=== PATIENT | male | born 1950 | race Caucasian/White ===

== ENCOUNTER → 2023-12-13 | Emergency (ER) | payer OTHER ==
[~2023-12-13] MED LIST: CLINDAMYCIN 600MG/D5W 50 ML IV ONE; TDAP (DIPHTH,PERTUSS(ACELL),TET VAC) 0.5 ML VIAL IMVAC ONE
--- OUTSIDE RECORDS SUMMARY | 2023-12-13 14:25 | XMS REPORT | Continuity of Care Document ---
Author Name Unknown Address [address] [facility] [address] [place] [address] [facility] thconnect Address [address] [facility] [address] [place] [address] Care Team Providers Care Assistant Professor Of Radiology Name Role Phone NONE, NONE Primary Care Physician Unavailab evon GREEN NAFEESA Attending Clinician Unavailable ENRIQUE MCGEE Attending Clinician Unavailable ENRIQUE MCGEE KIRAN Attending Clinician Unavaila ble Zuniga_F Attending Clinician Unavailable Alphonse Draper Attending Clinician Unavailab Carleen Rodriguez Attending Clinician Unavailab OUSMANE Escoto Attending Clinician Unav ailable GUU_SHENG_YAW Attending Clinician Unavailable DR ANA LESTER Attending Clinician Unavailable ERICK CORRALES Attending Clinician Unavailable LAURIE BOWENS Attending Clinician Unavailable GHADA DEVINE Attending Clinician Unavail able JAK HERNADEZ Attending Clinician Unavailable SNEHAL CARBAJAL Attending Clinician Unavailabl BLANCA Chamorro Admitting Clinician Unavailable ENRIQUE MCGEE KIRAN Admitting Clinician Unavaila ble Zuniga_F Admitting Clinician Unavailable Alphonse Draper Admitting Clinician Unavailab le GUU_SHENG_YAW Admitting Clinician Unavailable DR ANA LESTER Admitting Clinician Unavailable GHADA DEVINE Admitting Clinician Unavail able Payers Payer Name Policy Type Policy Number Effective Date Expirati on Date Source [facility] [id number] [place] [employer] [id number] 1989 00:00:00 [facility] [id number] [place] [employer] [facility] [id number] 1989 00:00:00 [id number] 2023 00:00:00 Social History Smoking Status Start Date Stop Date Source Former Smoker [facility] Medications Ordered Medication Name Filled Medication Name Start Date Stop Date Current Medication? Ordering Clinician Indication Dosage Frequency Signature (SIG) Comments Components Source nitrofurant oin monohydrate /macrocryst als 100 mg capsule TAKE 1 CAPSULE BY MOUTH 2 TIMES DAILY FOR 5 DAYS nitrofurant oin monohydrate /macrocryst als 100 mg capsule TAKE 1 CAPSULE BY MOUTH 2 TIMES DAILY FOR 5 DAYS No nitrofuran toin monohydrat e/macrocry stals 100 mg capsule TAKE 1 CAPSULE BY MOUTH 2 TIMES DAILY FOR 5 DAYS [facility] triamcinolo ne acetonide 0.1 % topical cream APPLY TO AFFECTED AREAS 3 TIMES DAILY FOR 10 DAYS triamcinolo ne acetonide 0.1 % topical cream APPLY TO AFFECTED AREAS 3 TIMES DAILY FOR 10 DAYS No triamcinol one acetonide 0.1 % topical cream APPLY TO AFFECTED AREAS 3 TIMES DAILY FOR 10 DAYS [facility] venlafaxine ER 75 mg capsule,ext ended release 24 hr TAKE 3 CAPSULES BY MOUTH ONCE DAILY venlafaxine ER 75 mg capsule,ext ended release 24 hr TAKE 3 CAPSULES BY MOUTH ONCE DAILY No venlafaxin e ER 75 mg capsule,ex tended release 24 hr TAKE 3 CAPSULES BY MOUTH ONCE DAILY [facility] atorvastati n 80 mg tablet Take 1 tablet every day by oral route. atorvastati n 80 mg tablet Take 1 tablet every day by oral route. No 1 Q1D atorvastat in 80 mg tablet Take 1 tablet every day by oral route. [facility] carvedilol 25 mg tablet Take 1 tablet twice a day by oral route. carvedilol 25 mg tablet Take 1 tablet twice a day by oral route. No 1 BID carvedilol 25 mg tablet Take 1 tablet twice a day by oral route. [facility] folic acid 1 mg tablet Take 1 tablet every day by oral route. folic acid 1 mg tablet Take 1 tablet every day by oral route. No 1 Q1D folic acid 1 mg tablet Take 1 tablet every day by oral route. [facility] hydralazine 10 mg tablet TAKE 1 TABLET BY MOUTH THREE TIMES DAILY hydralazine 10 mg tablet TAKE 1 TABLET BY MOUTH THREE TIMES DAILY No hydralazin e 10 mg tablet TAKE 1 TABLET BY MOUTH THREE TIMES DAILY [facility] Lasix 40 mg tablet Take 1 tablet every day by oral route. Lasix 40 mg tablet Take 1 tablet every day by oral route. No 1 Q1D Lasix 40 mg tablet Take 1 tablet every day by oral route. [facility] losartan 50 mg tablet Take 1 tablet every day by oral route. losartan 50 mg tablet Take 1 tablet every day by oral route. No 1 Q1D losartan 50 mg tablet Take 1 tablet every day by oral route. [facility] melatonin 3 mg tablet Take by oral route. melatonin 3 mg tablet Take by oral route. No melatonin 3 mg tablet Take by oral route. [facility] methocarbam ol 750 mg tablet Take 1 tablet 3 times a day by oral route. methocarbam ol 750 mg tablet Take 1 tablet 3 times a day by oral route. No 1 TID methocarba mol 750 mg tablet Take 1 tablet 3 times a day by oral route. [facility] nitrofurant oin monohydrate /macrocryst als 100 mg capsule TAKE 1 CAPSULE BY MOUTH 2 TIMES DAILY FOR 5 DAYS nitrofurant oin monohydrate /macrocryst als 100 mg capsule TAKE 1 CAPSULE BY MOUTH 2 TIMES DAILY FOR 5 DAYS No nitrofuran toin monohydrat e/macrocry stals 100 mg capsule TAKE 1 CAPSULE BY MOUTH 2 TIMES DAILY FOR 5 DAYS [facility] tamsulosin 0.4 mg capsule Take 1 capsule every day by oral route. tamsulosin 0.4 mg capsule Take 1 capsule every day by oral route. No 1capsul e(s) Q1D tamsulosin 0.4 mg capsule Take 1 capsule every day by oral route. [facility] trazodone 100 mg tablet Take 1 tablet twice a day by oral route. trazodone 100 mg tablet Take 1 tablet twice a day by oral route. No 1 BID trazodone 100 mg tablet Take 1 tablet twice a day by oral route. [facility] triamcinolo ne acetonide 0.1 % topical cream APPLY TO AFFECTED AREAS 3 TIMES DAILY FOR 10 DAYS triamcinolo ne acetonide 0.1 % topical cream APPLY TO AFFECTED AREAS 3 TIMES DAILY FOR 10 DAYS No triamcinol one acetonide 0.1 % topical cream APPLY TO AFFECTED AREAS 3 TIMES DAILY FOR 10 DAYS [facility] venlafaxine ER 75 mg capsule,ext ended release 24 hr TAKE 3 CAPSULES BY MOUTH ONCE DAILY venlafaxine ER 75 mg capsule,ext ended release 24 hr TAKE 3 CAPSULES BY MOUTH ONCE DAILY No venlafaxin e ER 75 mg capsule,ex tended release 24 hr TAKE 3 CAPSULES BY MOUTH ONCE DAILY [facility] venlafaxine ER 75 mg tablet,exte nded release 24 hr Take 1 tablet every day by oral route. venlafaxine ER 75 mg tablet,exte nded release 24 hr Take 1 tablet every day by oral route. No 1 Q1D venlafaxin e ER 75 mg tablet,ext ended release 24 hr Take 1 tablet every day by oral route. [facility] hydralazine 10 mg tablet TAKE 1 TABLET BY MOUTH THREE TIMES DAILY hydralazine 10 mg tablet TAKE 1 TABLET BY MOUTH THREE TIMES DAILY No hydralazin e 10 mg tablet TAKE 1 TABLET BY MOUTH THREE TIMES DAILY [facility] atorvastati n 80 mg tablet Take 1 tablet every day by oral route. atorvastati n 80 mg tablet Take 1 tablet every day by oral route. No 1 Q1D atorvastat in 80 mg tablet Take 1 tablet every day by oral route. [facility] carvedilol 25 mg tablet Take 1 tablet twice a day by oral route. carvedilol 25 mg tablet Take 1 tablet twice a day by oral route. No 1 BID carvedilol 25 mg tablet Take 1 tablet twice a day by oral route. [facility] folic acid 1 mg tablet Take 1 tablet every day by oral route. folic acid 1 mg tablet Take 1 tablet every day by oral route. No 1 Q1D folic acid 1 mg tablet Take 1 tablet every day by oral route. [facility] hydralazine 10 mg tablet TAKE 1 TABLET BY MOUTH THREE TIMES DAILY hydralazine 10 mg tablet TAKE 1 TABLET BY MOUTH THREE TIMES DAILY No hydralazin e 10 mg tablet TAKE 1 TABLET BY MOUTH THREE TIMES DAILY [facility] Lasix 40 mg tablet Take 1 tablet every day by oral route. Lasix 40 mg tablet Take 1 tablet every day by oral route. No 1 Q1D Lasix 40 mg tablet Take 1 tablet every day by oral route. [facility] losartan 50 mg tablet Take 1 tablet every day by oral route. losartan 50 mg tablet Take 1 tablet every day by oral route. No 1 Q1D losartan 50 mg tablet Take 1 tablet every day by oral route. [facility] nitrofurant oin monohydrate /macrocryst als 100 mg capsule TAKE 1 CAPSULE BY MOUTH 2 TIMES DAILY FOR 5 DAYS nitrofurant oin monohydrate /macrocryst als 100 mg capsule TAKE 1 CAPSULE BY MOUTH 2 TIMES DAILY FOR 5 DAYS No nitrofuran toin monohydrat e/macrocry stals 100 mg capsule TAKE 1 CAPSULE BY MOUTH 2 TIMES DAILY FOR 5 DAYS [facility] melatonin 3 mg tablet Take by oral route. melatonin 3 mg tablet Take by oral route. No melatonin 3 mg tablet Take by oral route. [facility] methocarbam ol 750 mg tablet Take 1 tablet 3 times a day by oral route. methocarbam ol 750 mg tablet Take 1 tablet 3 times a day by oral route. No 1 TID methocarba mol 750 mg tablet Take 1 tablet 3 times a day by oral route. [facility] nitrofurant oin monohydrate /macrocryst als 100 mg capsule TAKE 1 CAPSULE BY MOUTH 2 TIMES DAILY FOR 5 DAYS nitrofurant oin monohydrate /macrocryst als 100 mg capsule TAKE 1 CAPSULE BY MOUTH 2 TIMES DAILY FOR 5 DAYS No nitrofuran toin monohydrat e/macrocry stals 100 mg capsule TAKE 1 CAPSULE BY MOUTH 2 TIMES DAILY FOR 5 DAYS [facility] tamsulosin 0.4 mg capsule Take 1 capsule every day by oral route. tamsulosin 0.4 mg capsule Take 1 capsule every day by oral route. No 1capsul e(s) Q1D tamsulosin 0.4 mg capsule Take 1 capsule every day by oral route. [facility] trazodone 100 mg tablet Take 1 tablet twice a day by oral route. trazodone 100 mg tablet Take 1 tablet twice a day by oral route. No 1 BID trazodone 100 mg tablet Take 1 tablet twice a day by oral route. [facility] triamcinolo ne acetonide 0.1 % topical cream APPLY TO AFFECTED AREAS 3 TIMES DAILY FOR 10 DAYS triamcinolo ne acetonide 0.1 % topical cream APPLY TO AFFECTED AREAS 3 TIMES DAILY FOR 10 DAYS No triamcinol one acetonide 0.1 % topical cream APPLY TO AFFECTED AREAS 3 TIMES DAILY FOR 10 DAYS [facility] venlafaxine ER 75 mg capsule,ext ended release 24 hr TAKE 3 CAPSULES BY MOUTH ONCE DAILY venlafaxine ER 75 mg capsule,ext ended release 24 hr TAKE 3 CAPSULES BY MOUTH ONCE DAILY No venlafaxin e ER 75 mg capsule,ex tended release 24 hr TAKE 3 CAPSULES BY MOUTH ONCE DAILY [facility] venlafaxine ER 75 mg tablet,exte nded release 24 hr Take 1 tablet every day by oral route. venlafaxine ER 75 mg tablet,exte nded release 24 hr Take 1 tablet every day by oral route. No 1 Q1D venlafaxin e ER 75 mg tablet,ext ended release 24 hr Take 1 tablet every day by oral route. [facility] triamcinolo ne acetonide 0.1 % topical cream APPLY TO AFFECTED AREAS 3 TIMES DAILY FOR 10 DAYS triamcinolo ne acetonide 0.1 % topical cream APPLY TO AFFECTED AREAS 3 TIMES DAILY FOR 10 DAYS No triamcinol one acetonide 0.1 % topical cream APPLY TO AFFECTED AREAS 3 TIMES DAILY FOR 10 DAYS [facility] venlafaxine ER 75 mg capsule,ext ended release 24 hr TAKE 3 CAPSULES BY MOUTH ONCE DAILY venlafaxine ER 75 mg capsule,ext ended release 24 hr TAKE 3 CAPSULES BY MOUTH ONCE DAILY No venlafaxin e ER 75 mg capsule,ex tended release 24 hr TAKE 3 CAPSULES BY MOUTH ONCE DAILY [facility] hydralazine 10 mg tablet TAKE 1 TABLET BY MOUTH THREE TIMES DAILY hydralazine 10 mg tablet TAKE 1 TABLET BY MOUTH THREE TIMES DAILY No hydralazin e 10 mg tablet TAKE 1 TABLET BY MOUTH THREE TIMES DAILY [facility] nitrofurant oin monohydrate /macrocryst als 100 mg capsule TAKE 1 CAPSULE BY MOUTH 2 TIMES DAILY FOR 5 DAYS nitrofurant oin monohydrate /macrocryst als 100 mg capsule TAKE 1 CAPSULE BY MOUTH 2 TIMES DAILY FOR 5 DAYS No nitrofuran toin monohydrat e/macrocry stals 100 mg capsule TAKE 1 CAPSULE BY MOUTH 2 TIMES DAILY FOR 5 DAYS [facility] triamcinolo ne acetonide 0.1 % topical cream APPLY TO AFFECTED AREAS 3 TIMES DAILY FOR 10 DAYS triamcinolo ne acetonide 0.1 % topical cream APPLY TO AFFECTED AREAS 3 TIMES DAILY FOR 10 DAYS No triamcinol one acetonide 0.1 % topical cream APPLY TO AFFECTED AREAS 3 TIMES DAILY FOR 10 DAYS [facility] venlafaxine ER 75 mg capsule,ext ended release 24 hr TAKE 3 CAPSULES BY MOUTH ONCE DAILY venlafaxine ER 75 mg capsule,ext ended release 24 hr TAKE 3 CAPSULES BY MOUTH ONCE DAILY No venlafaxin e ER 75 mg capsule,ex tended release 24 hr TAKE 3 CAPSULES BY MOUTH ONCE DAILY [facility] hydralazine 10 mg tablet TAKE 1 TABLET BY MOUTH THREE TIMES DAILY hydralazine 10 mg tablet TAKE 1 TABLET BY MOUTH THREE TIMES DAILY No hydralazin e 10 mg tablet TAKE 1 TABLET BY MOUTH THREE TIMES DAILY [facility] nitrofurant oin monohydrate /macrocryst als 100 mg capsule TAKE 1 CAPSULE BY MOUTH 2 TIMES DAILY FOR 5 DAYS nitrofurant oin monohydrate /macrocryst als 100 mg capsule TAKE 1 CAPSULE BY MOUTH 2 TIMES DAILY FOR 5 DAYS No nitrofuran toin monohydrat e/macrocry stals 100 mg capsule TAKE 1 CAPSULE BY MOUTH 2 TIMES DAILY FOR 5 DAYS [facility] triamcinolo ne acetonide 0.1 % topical cream APPLY TO AFFECTED AREAS 3 TIMES DAILY FOR 10 DAYS triamcinolo ne acetonide 0.1 % topical cream APPLY TO AFFECTED AREAS 3 TIMES DAILY FOR 10 DAYS No triamcinol one acetonide 0.1 % topical cream APPLY TO AFFECTED AREAS 3 TIMES DAILY FOR 10 DAYS [facility] venlafaxine ER 75 mg capsule,ext ended release 24 hr TAKE 3 CAPSULES BY MOUTH ONCE DAILY venlafaxine ER 75 mg capsule,ext ended release 24 hr TAKE 3 CAPSULES BY MOUTH ONCE DAILY No venlafaxin e ER 75 mg capsule,ex tended release 24 hr TAKE 3 CAPSULES BY MOUTH ONCE DAILY [facility] hydralazine 10 mg tablet TAKE 1 TABLET BY MOUTH THREE TIMES DAILY hydralazine 10 mg tablet TAKE 1 TABLET BY MOUTH THREE TIMES DAILY No hydralazin e 10 mg tablet TAKE 1 TABLET BY MOUTH THREE TIMES DAILY [facility] Vital Signs Vital Name Observation Time Observation Value Comments S ource Height 2023-10-23 00:00:00 68 [in_i] [facility] Body Weight 2023-09-11 00:00:00 230 [lb_av] [facility] BP Diastolic 2023-09-11 00:00:00 97 mm[Hg] [facility] Height 2023-09-11 00:00:00 68 [in_i] [facility] BMI (Body Mass Index) 2023-09-11 00:00:00 35 kg/m2 [facility] BP Systolic 2023-09-11 00:00:00 180 mm[Hg] [facility] Procedures Procedure Date / Time Performed Performing Clinicia n Source XR, clavicle 2023-09-11 00:00:00 [facility] Encounters Start Date/Time End Date/Time Encounter Type Admission Type Attending Clinicians Care Facility Care Department Encounter ID Source 2023-07-11 07:52:00 Inpatient ER BLANCA GREEN [facility] [id number] [facility] 2023-04-25 08:38:27 Outpatient ENRIQUE PACHECO ENCCLR ENCCLR [id number] ENCCLR 2023-04-10 14:09:29 Outpatient ENRIQUE MARTELL ENCSL [facility] [id number] [facility]ation [place] 2023-11-23 00:00:00 2023-11-23 00:00:00 [place] [id number] [facility] 2023-11-20 00:00:00 2023-11-20 00:00:00 Outpatient Zuniga_F MMG MMG [id number] [facility] 2023-11-09 00:00:00 2023-11-09 00:00:00 [place] [id number] [facility] 2023-11-01 00:00:00 2023-11-01 00:00:00 Outpatient Zuniga_F MMG MMG [id number] [facility] 2023-10-26 00:00:00 2023-10-26 00:00:00 Outpatient Zuniga_F MMG MMG [id number] [facility] 2023-10-23 00:00:00 2023-10-23 00:00:00 Alphonse Draper MD: [address], [place] [address] , Ph. MMG [facility] [id number] [facility] 2023-10-12 00:00:00 2023-10-12 00:00:00 Outpatient Zuniga_F MMG MMG [id number] [facility] 2023-10-02 15:51:00 2023-10-05 23:00:00 observatio n encounter [facility] [id number] [facility] [id number] 2023-10-02 15:51:00 2023-10-05 23:00:00 Inpatient ER Alphonse Draper [facility] [id number] [facility] 2023-09-24 17:23:00 2023-09-24 22:30:00 emergency [facility] [id number] 2023-09-24 17:23:00 2023-09-24 22:30:00 Emergency ER Carleen Fonseca [facility] [id number] [facility] 2023-09-22 00:00:00 2023-09-22 00:00:00 Outpatient Zuniga_F MMG [facility] [id number] [facility] 2023-09-11 11:37:00 2023-09-11 11:37:00 Outpatient OUSMANE ALLEN [facility] [id number] [facility] 2023-09-11 00:00:00 2023-09-11 00:00:00 Outpatient Zuniga_F MMG G [id number] [facility] 2023-09-11 00:00:00 2023-09-11 00:00:00 Ousmane Marrero MD: [address], [address], [place] [address] , Ph. [phone] MMG [facility] [id number] [facility] 2023-09-10 00:00:00 2023-09-10 00:00:00 Alphonse Draper MD: [address], [place] [address] , Ph. MMG [facility]/F amily Practice [id number] [facility] 2023-09-05 00:00:00 2023-09-05 00:00:00 Outpatient Zuniga_F MMG MMG [id number] [facility] 2023-09-05 00:00:00 2023-09-05 00:00:00 Outpatient Zuniga_F MMG MMG [id number] [facility] 2023-08-29 09:41:00 2023-08-29 09:41:00 Outpatient EILEEN Alphonse Draper [facility] [id number] [facility] 2023-08-18 00:00:00 2023-08-18 00:00:00 Outpatient Zuniga_F MMG [facility] [id number] [facility] 2023-08-14 00:00:00 2023-08-14 00:00:00 Alphonse Draper MD: [address] [place] [address] , [facility] [id number] [facility] 2023-08-12 11:24:00 2023-08-12 11:24:00 Outpatient EILEEN Alphonse Draper [facility] [id number] [facility] 2023-08-06 00:00:00 2023-08-06 00:00:00 Outpatient Zuniga_F MMG [facility] [id number] [facility] 2023-08-06 00:00:00 2023-08-06 00:00:00 Outpatient Zuniga_F MMG MMG [id number] [facility] 2023-08-02 12:17:00 2023-08-02 12:17:00 Outpatient EILEEN Alphonse Draper [facility] [id number] [facility] 2023-08-01 00:00:00 2023-08-01 00:00:00 Alphonse Draper MD: [address] [place] [address] , Ph. MMG [facility] [id number] [facility] 2023-07-31 00:00:00 2023-07-31 00:00:00 Outpatient Zuniga_F MMG MMG [id number] [facility] 2023-07-31 00:00:00 2023-07-31 00:00:00 Outpatient Zuniga_F MMG MMG [id number] [facility] 2023-07-31 00:00:00 2023-07-31 00:00:00 Outpatient Zuniga_F MMG MMG [id number] [facility] 2023-07-28 00:00:00 2023-07-28 00:00:00 Outpatient Zuniga_F MMG MMG [id number] [facility] 2023-07-28 00:00:00 2023-07-28 00:00:00 Alphonse Draper MD: [address] [place] [address], [address], [place] [address] , Ph. MMG [facility] [id number] [facility] 2023-07-27 09:54:00 2023-07-27 09:54:00 Outpatient Alphonse Paz [facility] [id number] [facility] 2023-07-26 00:00:00 2023-07-26 00:00:00 Outpatient Zuniga_F MMG MMG [id number] [facility] 2023-07-13 14:30:00 2023-07-13 21:02:00 Inpatient [facility]CA [facility] [id number] [facility] 2023-05-24 00:00:00 2023-05-24 00:00:00 Outpatient GUU_SHENG_Y AW [facility] [id number] [facility] 2023-04-11 13:14:00 2023-04-25 13:57:00 Inpatient 3 ENRIQUE MCGEESL CVA [id number] [facility] [place] 2023-04-12 10:47:00 2023-04-12 23:59:00 Outpatient Trini ANA LESTER [facility] [id number] [facility] 2023-03-23 09:54:00 2023-03-23 09:54:00 Outpatient ERICK MEDEL [facility] [id number] [facility] 2022-10-12 00:00:00 2022-10-12 00:00:00 Outpatient GUU_SHENG_Y AW [facility] [id number] [facility] 2022-10-11 00:00:00 2022-10-11 00:00:00 Outpatient GUU_SHENG_Y AW [facility] [id number] [facility] 2022-10-10 00:00:00 2022-10-10 00:00:00 Outpatient GUU_SHENG_Y AW [facility] [id number] [facility] 2022-09-01 07:22:00 2022-09-30 00:01:00 Outpatient LAURIE BRADSHAW [facility] [id number] [facility] 2022-08-30 09:00:00 2022-08-30 23:59:00 ambulatory [id number] 2022-08-30 09:00:00 2022-08-30 00:01:00 Outpatient LAURIE BRADSHAW [facility] [id number] [facility] 2022-08-15 08:00:00 2022-08-15 08:00:00 Outpatient LAURIE BRADSHAW [facility] [id number] [facility] 2022-08-14 09:00:00 2022-08-14 09:00:00 Outpatient LAURIE BRADSHAW [facility] [id number] [facility] 2022-08-10 07:24:00 2022-08-10 07:24:00 Outpatient LAURIE BRADSHAW [facility] [id number] [facility] 2022-07-25 00:00:00 2022-07-25 00:00:00 Outpatient GUU_SHENG_Y AW [facility] [id number] [facility] 2022-07-24 00:00:00 2022-07-24 00:00:00 Outpatient GUU_SHENG_Y AW [facility] [id number] [facility] 2021-08-29 09:03:00 2021-08-30 19:21:00 Inpatient ER GHADA DEVINE [facility] [id number] [facility] 2021-08-23 12:33:00 2021-08-23 15:25:00 Emergency ER JAK HERNADEZ [facility] [id number] [facility] 2021-08-19 16:32:00 2021-08-19 22:00:00 Emergency TR SNEHAL CARBAJAL [facility] [id number] [facility] Results Test Description Test Time Test Comments Results Result Co mments Source [place] [id number] 12:24:00* Test Item Value Reference Range Interpretation Comme [facility] blood glucose monitoring (te st code = blood glucose monitoring) 185 mg/dL 70.0-110 [facility] [id number] 07:24:00* Test Item Value Reference Range Interpretation Comme [facility] blood glucose monitoring (te st code = blood glucose monitoring) 139 mg/dL 70.0-110 [facility] [id number] 06:21:00* Test Item Value Reference Range Interpretation Comme [facility] glucose (test code = glucose) 125 mg/dL 82-115 H blood urea nitrogen (test co de = blood urea nitrogen) 17 mg/dL 8-23 osmolality calculated,serum (test code = osmolality calculated,serum) 292 mOsm/kg 280-300 creatinine (test code = creatinine) 1.49 mg/dL 0.70-1.20 H glomerular filtration rate ( test code = glomerular filtration rate) 46.36 L BUN/creatinine ratio (test c ode = BUN/creatinine ratio) 11.4 12.0-20.0 L sodium level (test code = so dium level) 145 mmol/L 135-145 potassium level (test code = potassium level) 3.0 mmol/L 3.5-5.2 L chloride level (test code = chloride level) 106 mmol/L 98-108 CO2 (test code = CO2) 27 mmol/L 21-32 anion gap (test code = anion gap) 15.0 mEq/L 12.0-20.0 calcium level (test code = calcium level) 9.2 mg/dL 8.8-10.2 [facility] W Auto Differential panel - [id number] 06:00:00 * Test Item Value Reference Range Interpretation Comme [facility] white blood count (test code = white blood count) 8.1 K/uL 4.0-12.3 red blood count (test code = red blood count) 3.72 M/uL 3.80-5.80 L hemoglobin (test code = hemoglobin) 10.9 g/dL 11.7-17.2 L hematocrit (test code = hematocrit) 34.4 % 35.0-51.0 L mean corpuscular volume (valeria t code = mean corpuscular volume) 92.5 fL 83.0-100.0 mean corpuscular hemoglobin (test code = mean corpuscular hemoglobin) 29.3 pg 26.8-33.4 mean corpuscular HGB conc (t est code = mean corpuscular HGB conc) 31.7 g/dL 30.0-35.0 red cell distribution width (test code = red cell distribution width) 14.2 % 12.0-14.0 H platelet count (test code = platelet count) 239 K/uL 175-450 mean platelet volume (test c ode = mean platelet volume) 12.2 fL 9.4-12.6 neutrophils % (test code = neutrophils %) 45.9 % 44.7-82.4 Ig% (test code = Ig%) 0.6 % 0.0-0.4 H lymphocyte% (test code = lymphocyte%) 30.2 % 10.0-50.0 mono % (test code = mono %) 18.0 % 3.9-13.4 H eos % (test code = eos %) 4.8 % 0.0-6.4 basophil % (test code = baso renato %) 0.5 % 0.2-1.2 absolute neutrophil count (t est code = absolute neutrophil count) 3.73 K/uL 1.78-5.38 Ig# (test code = Ig#) 0.05 K/uL 0.00-0.03 H lymph # (test code = lymph #) 2.45 K/uL 1.32-3.57 mono # (test code = mono #) 1.46 K/uL 0.30-0.82 H eos # (test code = eos #) 0.39 K/uL 0.04-0.54 basophil # (test code = baso renato #) 0.04 K/uL 0.01-0.08 NRBC% (test code = NRBC%) 0 /100 WBC 0-0.2 NRBC# (test code = NRBC#) 0 K/uL [facility] [id number] 20:36:00* Test Item Value Reference Range Interpretation Comme nts blood glucose monitoring (te st code = blood glucose monitoring) 152 mg/dL 70.0-110 H [facility] [id number] 16:52:00* Test Item Value Reference Range Interpretation Comme nts mass creatinine kinase-mb (t est code = mass creatinine kinase-mb) 1.2 NG/mL 0.0-3.6 [facility] [id number] 16:52:00* Test Item Value Reference Range Interpretation Comme nts troponin T high sens (test c ode = troponin T high sens) 26.4 NG/L 0.0-22.0 [facility] [id number] 16:52:00* Test Item Value Reference Range Interpretation Comme nts mass creatinine kinase-mb (t est code = mass creatinine kinase-mb) 1.2 NG/mL 0.0-3.6 [facility] [id number] 16:52:00* Test Item Value Reference Range Interpretation Comme nts troponin T high sens (test c ode = troponin T high sens) 26.4 NG/L 0.0-22.0 [facility] kinase [Enzymatic activity/volume] in Serum or [id number] 16:50:00* Test Item Value Reference Range Interpretation Comme nts creatine kinase (test code = creatine kinase) 56 U/L 20-200 [facility] [id number] 16:34:00* Test Item Value Reference Range Interpretation Comme nts blood glucose monitoring (te st code = blood glucose monitoring) 172 mg/dL 70.0-110 [facility] [id number] 14:39:00Covid-19 [facility] [id number] 11:10:00* Test Item Value Reference Range Interpretation Comme nts blood glucose monitoring (te st code = blood glucose monitoring) 181 mg/dL 70.0-110 [facility] [id number] 08:32:00* Test Item Value Reference Range Interpretation Comme nts blood glucose monitoring (te st code = blood glucose monitoring) 109 mg/dL 70.0-110 [facility] [id number] 05:01:00* Test Item Value Reference Range Interpretation Comme nts glucose (test code = glucose) 116 mg/dL 82-115 H blood urea nitrogen (test co de = blood urea nitrogen) 20 mg/dL 8-23 creatinine (test code = creatinine) 1.40 mg/dL 0.70-1.20 H sodium level (test code = so dium level) 144 mmol/L 135-145 potassium level (test code = potassium level) 2.6 mmol/L 3.5-5.2 L chloride level (test code = chloride level) 105 mmol/L 98-108 CO2 (test code = CO2) 26 mmol/L 21-32 anion gap (test code = anion gap) 15.6 mEq/L 12.0-20.0 calcium level (test code = c alcium level) 9.6 mg/dL 8.8-10.2 [facility] metabolic [id number] 05:01:00* Test Item Value Reference Range Interpretation Comme [facility] glucose (test code = glucose) 116 mg/dL 82-115 H blood urea nitrogen (test co de = blood urea nitrogen) 20 mg/dL 8-23 osmolality calculated,serum (test code = osmolality calculated,serum) 291 mOsm/kg 280-300 creatinine (test code = creatinine) 1.40 mg/dL 0.70-1.20 H glomerular filtration rate ( test code = glomerular filtration rate) 49.82 L BUN/creatinine ratio (test c ode = BUN/creatinine ratio) 14.3 12.0-20.0 sodium level (test code = so dium level) 144 mmol/L 135-145 potassium level (test code = potassium level) 2.6 mmol/L 3.5-5.2 L chloride level (test code = chloride level) 105 mmol/L 98-108 CO2 (test code = CO2) 26 mmol/L 21-32 anion gap (test code = anion gap) 15.6 mEq/L 12.0-20.0 calcium level (test code = calcium level) 9.6 mg/dL 8.8-10.2 [facility] W Auto Differential panel - [id number] 04:30:00 * Test Item Value Reference Range Interpretation Comme [facility] white blood count (test code = white blood count) 7.2 K/uL 4.0-12.3 red blood count (test code = red blood count) 3.68 M/uL 3.80-5.80 L hemoglobin (test code = hemoglobin) 10.6 g/dL 11.7-17.2 L hematocrit (test code = hematocrit) 34.1 % 35.0-51.0 L mean corpuscular volume (valeria t code = mean corpuscular volume) 92.7 fL 83.0-100.0 mean corpuscular hemoglobin (test code = mean corpuscular hemoglobin) 28.8 pg 26.8-33.4 mean corpuscular HGB conc (t est code = mean corpuscular HGB conc) 31.1 g/dL 30.0-35.0 red cell distribution width (test code = red cell distribution width) 14.2 % 12.0-14.0 H platelet count (test code = platelet count) 226 K/uL 175-450 mean platelet volume (test c ode = mean platelet volume) 12.0 fL 9.4-12.6 neutrophils % (test code = neutrophils %) 51.8 % 44.7-82.4 Ig% (test code = Ig%) 0.3 % 0.0-0.4 lymphocyte% (test code = lymphocyte%) 28.4 % 10.0-50.0 mono % (test code = mono %) 16.2 % 3.9-13.4 H eos % (test code = eos %) 3.0 % 0.0-6.4 basophil % (test code = baso renato %) 0.3 % 0.2-1.2 absolute neutrophil count (t est code = absolute neutrophil count) 3.75 K/uL 1.78-5.38 Ig# (test code = Ig#) 0.02 K/uL 0.00-0.03 lymph # (test code = lymph #) 2.05 K/uL 1.32-3.57 mono # (test code = mono #) 1.17 K/uL 0.30-0.82 H eos # (test code = eos #) 0.22 K/uL 0.04-0.54 basophil # (test code = baso renato #) 0.02 K/uL 0.01-0.08 NRBC% (test code = NRBC%) 0 /100 WBC 0-0.2 NRBC# (test code = NRBC#) 0 K/uL [facility] [id number] 01:18:00* Test Item Value Reference Range Interpretation Comme nts blood glucose monitoring (te st code = blood glucose monitoring) 221 mg/dL 70.0-110 H [facility] [id number] 19:55:00* Test Item Value Reference Range Interpretation Comme nts blood glucose monitoring (te st code = blood glucose monitoring) 152 mg/dL 70.0-110 H [facility] [id number] 16:57:00* Test Item Value Reference Range Interpretation Comme nts blood glucose monitoring (te st code = blood glucose monitoring) 226 mg/dL 70.0-110 [facility] [id number] 16:30:00* Test Item Value Reference Range Interpretation Comme nts mass creatinine kinase-mb (t est code = mass creatinine kinase-mb) 1.4 NG/mL 0.0-3.6 [facility] [id number] 16:30:00* Test Item Value Reference Range Interpretation Comme nts troponin T high sens (test c ode = troponin T high sens) 22.4 NG/L 0.0-22.0 [facility] CenterCreat[facility] kinase [Enzymatic activity/volume] in Serum or [id number] 16:29:00* Test Item Value Reference Range Interpretation Comme nts creatine kinase (test code = creatine kinase) 55 U/L 20-200 [facility] [id number] 10:54:00* Test Item Value Reference Range Interpretation Comme nts blood glucose monitoring (te st code = blood glucose monitoring) 200 mg/dL 70.0-110 [facility] [id number] 07:14:00* Test Item Value Reference Range Interpretation Comme nts blood glucose monitoring (te st code = blood glucose monitoring) 131 mg/dL 70.0-110 [facility] [id number] 04:09:00* Test Item Value Reference Range Interpretation Comme nts glucose (test code = glucose) 112 mg/dL 82-115 blood urea nitrogen (test co de = blood urea nitrogen) 19 mg/dL 8-23 osmolality calculated,serum (test code = osmolality calculated,serum) 292 mOsm/kg 280-300 creatinine (test code = creatinine) 1.35 mg/dL 0.70-1.20 H glomerular filtration rate ( test code = glomerular filtration rate) 51.95 L BUN/creatinine ratio (test c ode = BUN/creatinine ratio) 14.1 12.0-20.0 sodium level (test code = so dium level) 145 mmol/L 135-145 potassium level (test code = potassium level) 3.0 mmol/L 3.5-5.2 L chloride level (test code = chloride level) 107 mmol/L 98-108 CO2 (test code = CO2) 27 mmol/L 21-32 anion gap (test code = anion gap) 14.0 mEq/L 12.0-20.0 calcium level (test code = calcium level) 9.6 mg/dL 8.8-10.2 [facility] W Auto Differential panel - [id number] 03:43:00 * Test Item Value Reference Range Interpretation Comme nts white blood count (test code = white blood count) 6.8 K/uL 4.0-12.3 red blood count (test code = red blood count) 3.88 M/uL 3.80-5.80 hemoglobin (test code = hemoglobin) 11.3 g/dL 11.7-17.2 L hematocrit (test code = hematocrit) 36.0 % 35.0-51.0 mean corpuscular volume (valeria t code = mean corpuscular volume) 92.8 fL 83.0-100.0 mean corpuscular hemoglobin (test code = mean corpuscular hemoglobin) 29.1 pg 26.8-33.4 mean corpuscular HGB conc (t est code = mean corpuscular HGB conc) 31.4 g/dL 30.0-35.0 red cell distribution width (test code = red cell distribution width) 14.0 % 12.0-14.0 platelet count (test code = platelet count) 226 K/uL 175-450 mean platelet volume (test c ode = mean platelet volume) 11.7 fL 9.4-12.6 neutrophils % (test code = neutrophils %) 52.7 % 44.7-82.4 Ig% (test code = Ig%) 0.4 % 0.0-0.4 lymphocyte% (test code = lymphocyte%) 30.5 % 10.0-50.0 mono % (test code = mono %) 12.3 % 3.9-13.4 eos % (test code = eos %) 3.7 % 0.0-6.4 basophil % (test code = baso renato %) 0.4 % 0.2-1.2 absolute neutrophil count (t est code = absolute neutrophil count) 3.56 K/uL 1.78-5.38 Ig# (test code = Ig#) 0.03 K/uL 0.00-0.03 lymph # (test code = lymph #) 2.06 K/uL 1.32-3.57 mono # (test code = mono #) 0.83 K/uL 0.30-0.82 H eos # (test code = eos #) 0.25 K/uL 0.04-0.54 basophil # (test code = baso renato #) 0.03 K/uL 0.01-0.08 NRBC% (test code = NRBC%) 0 /100 WBC 0-0.2 NRBC# (test code = NRBC#) 0 K/uL [facility] [id number] 19:11:00* Test Item Value Reference Range Interpretation Comme nts blood glucose monitoring (te st code = blood glucose monitoring) 153 mg/dL 70.0-110 [facility] [id number] 16:45:00* Test Item Value Reference Range Interpretation Comme nts mass creatinine kinase-mb (t est code = mass creatinine kinase-mb) 1.5 NG/mL 0.0-3.6 [facility] [id number] 16:45:00* Test Item Value Reference Range Interpretation Comme nts troponin T high sens (test c ode = troponin T high sens) 22.1 NG/L 0.0-22.0 [facility] [id number] 16:45:00* Test Item Value Reference Range Interpretation Comme nts mass creatinine kinase-mb (t est code = mass creatinine kinase-mb) 1.5 NG/mL 0.0-3.6 [facility] [id number] 16:45:00* Test Item Value Reference Range Interpretation Comme nts troponin T high sens (test c ode = troponin T high sens) 22.1 NG/L 0.0-22.0 [facility] CenterCreat[facility] kinase [Enzymatic activity/volume] in Serum or [id number] 16:43:00* Test Item Value Reference Range Interpretation Comme nts creatine kinase (test code = creatine kinase) 39 U/L 20-200 [facility] Centerhem[facility] [id number] 16:36:00* Test Item Value Reference Range Interpretation Comme nts Hemoglobin A1c/Hemoglobin.to alexei in Blood (test code = 4548-4) 7.8 % 4.0-6.0 H [facility] high [id number] 14:13:00* Test Item Value Reference Range Interpretation Comme nts troponin T high sens (test c ode = troponin T high sens) 22.5 NG/L 0.0-22.0 [facility] CenterN-[facility] pro natriuretic [id number] 12:07:00* Test Item Value Reference Range Interpretation Comme nts N-term pro natriuretic pepti de (test code = N-term pro natriuretic peptide) 246 pg/mL 0-125 H [facility] creatinine [id number] 12:06:00* Test Item Value Reference Range Interpretation Comme nts mass creatinine kinase-mb (t est code = mass creatinine kinase-mb) 1.6 NG/mL 0.0-3.6 [facility] [id number] 12:06:00* Test Item Value Reference Range Interpretation Comme nts troponin T high sens (test c ode = troponin T high sens) 25.1 NG/L 0.0-22.0 [facility] [id number] 12:06:00* Test Item Value Reference Range Interpretation Comme nts mass creatinine kinase-mb (t est code = mass creatinine kinase-mb) 1.6 NG/mL 0.0-3.6 [facility] [id number] 12:06:00* Test Item Value Reference Range Interpretation Comme nts troponin T high sens (test c ode = troponin T high sens) 25.1 NG/L 0.0-22.0 [facility] CenterComprehensive [facility] 2000 [facility] - Serum or Plasma 2023-10-02 12:02:00* Test Item Value Reference Range Interpretation Comme nts glucose (test code = glucose) 165 mg/dL 82-115 H blood urea nitrogen (test co de = blood urea nitrogen) 18 mg/dL 8-23 osmolality calculated,serum (test code = osmolality calculated,serum) 294 mOsm/kg 280-300 creatinine (test code = creatinine) 1.23 mg/dL 0.70-1.20 H glomerular filtration rate ( test code = glomerular filtration rate) 57.84 L BUN/creatinine ratio (test c ode = BUN/creatinine ratio) 14.6 12.0-20.0 sodium level (test code = so dium level) 145 mmol/L 135-145 potassium level (test code = potassium level) 3.8 mmol/L 3.5-5.2 chloride level (test code = chloride level) 106 mmol/L 98-108 CO2 (test code = CO2) 27 mmol/L 21-32 anion gap (test code = anion gap) 15.8 mEq/L 12.0-20.0 calcium level (test code = calcium level) 9.9 mg/dL 8.8-10.2 total protein (test code = t otal protein) 8.2 g/dL 6.6-8.7 albumin (test code = albumin) 4.1 g/dL 3.5-5.2 globulin (test code = globulin) 4.1 g/dL 1.5-4.5 A/G ratio (test code = A/G ratio) 1.0 >1.0 bilirubin,total (test code = bilirubin,total) 0.5 mg/dL 0.0-1.2 AST/SGOT (test code = AST/SGOT) 14 U/L 15-40 L ALT/SGPT (test code = ALT/SGPT) 14 U/L 0-41 alkaline phosphatase, total (test code = alkaline phosphatase, total) 140 U/L 40-130 [facility] CenterCreat[facility] kinase [Enzymatic activity/volume] in Serum or [id number] 12:02:00* Test Item Value Reference Range Interpretation Comme nts creatine kinase (test code = creatine kinase) 44 U/L 20-200 [facility] CenterPT/[id number] 11:45:00* Test Item Value Reference Range Interpretation Comme nts prothrombin time (test code = prothrombin time) 11.1 seconds 10.3-12.3 INR (test code = INR) 0.98 [facility]in [id number] 11:45:00* Test Item Value Reference Range Interpretation Comme nts partial thromboplastin time (test code = partial thromboplastin time) 29.4 seconds 22.5-37.0 [facility] W Auto Differential panel - [id number] 11:16:00 * Test Item Value Reference Range Interpretation Comme nts white blood count (test code = white blood count) 6.7 K/uL 4.0-12.3 red blood count (test code = red blood count) 4.21 M/uL 3.80-5.80 hemoglobin (test code = hemoglobin) 12.4 g/dL 11.7-17.2 hematocrit (test code = hematocrit) 39.4 % 35.0-51.0 mean corpuscular volume (valeria t code = mean corpuscular volume) 93.6 fL 83.0-100.0 mean corpuscular hemoglobin (test code = mean corpuscular hemoglobin) 29.5 pg 26.8-33.4 mean corpuscular HGB conc (t est code = mean corpuscular HGB conc) 31.5 g/dL 30.0-35.0 red cell distribution width (test code = red cell distribution width) 13.9 % 12.0-14.0 platelet count (test code = platelet count) 213 K/uL 175-450 mean platelet volume (test c ode = mean platelet volume) 12.0 fL 9.4-12.6 neutrophils % (test code = neutrophils %) 60.0 % 44.7-82.4 Ig% (test code = Ig%) 0.6 % 0.0-0.4 H lymphocyte% (test code = lymphocyte%) 27.7 % 10.0-50.0 mono % (test code = mono %) 8.3 % 3.9-13.4 eos % (test code = eos %) 3.0 % 0.0-6.4 basophil % (test code = baso renato %) 0.4 % 0.2-1.2 absolute neutrophil count (t est code = absolute neutrophil count) 4.04 K/uL 1.78-5.38 Ig# (test code = Ig#) 0.04 K/uL 0.00-0.03 H lymph # (test code = lymph #) 1.87 K/uL 1.32-3.57 mono # (test code = mono #) 0.56 K/uL 0.30-0.82 eos # (test code = eos #) 0.20 K/uL 0.04-0.54 basophil # (test code = baso renato #) 0.03 K/uL 0.01-0.08 NRBC% (test code = NRBC%) 0 /100 WBC 0-0.2 NRBC# (test code = NRBC#) 0 K/uL [facility] CenterD-[id number] 18:53:00* Test Item Value Reference Range Interpretation Comme [facility] D-dimer (test code = D-dimer) 1250 NG/mL <500 H [facility] CenterCom[facility] 2000 [facility] - Serum or Plasma 2023-09-24 18:52:00* Test Item Value Reference Range Interpretation Comme [facility] glucose (test code = glucose) 393 mg/dL 82-115 H blood urea nitrogen (test co de = blood urea nitrogen) 14 mg/dL 8-23 osmolality calculated,serum (test code = osmolality calculated,serum) 295 mOsm/kg 280-300 creatinine (test code = creatinine) 1.44 mg/dL 0.70-1.20 H glomerular filtration rate ( test code = glomerular filtration rate) 48.22 L BUN/creatinine ratio (test c ode = BUN/creatinine ratio) 9.7 12.0-20.0 L sodium level (test code = so dium level) 139 mmol/L 135-145 potassium level (test code = potassium level) 3.8 mmol/L 3.5-5.2 chloride level (test code = chloride level) 100 mmol/L 98-108 CO2 (test code = CO2) 29 mmol/L 21-32 anion gap (test code = anion gap) 13.8 mEq/L 12.0-20.0 calcium level (test code = calcium level) 9.4 mg/dL 8.8-10.2 total protein (test code = t otal protein) 8.2 g/dL 6.6-8.7 albumin (test code = albumin) 3.9 g/dL 3.5-5.2 globulin (test code = globulin) 4.3 g/dL 1.5-4.5 A/G ratio (test code = A/G ratio) 0.9 >1.0 bilirubin,total (test code = bilirubin,total) 0.2 mg/dL 0.0-1.2 AST/SGOT (test code = AST/SGOT) 14 U/L 15-40 L ALT/SGPT (test code = ALT/SGPT) 16 U/L 0-41 alkaline phosphatase, total (test code = alkaline phosphatase, total) 127 U/L 40-130 [facility] [id number] 18:37:00* Test Item Value Reference Range Interpretation Comme [facility] N-term pro natriuretic pepti de (test code = N-term pro natriuretic peptide) 905 pg/mL 0-125 [facility] high [id number] 18:35:00* Test Item Value Reference Range Interpretation Comme nts troponin T high sens (test c ode = troponin T high sens) 19.9 NG/L 0.0-22.0 [facility] W Auto Differential panel - [id number] 18:15:00 * Test Item Value Reference Range Interpretation Comme nts white blood count (test code = white blood count) 10.0 K/uL 4.0-12.3 red blood count (test code = red blood count) 3.75 M/uL 3.80-5.80 L hemoglobin (test code = hemoglobin) 11.1 g/dL 11.7-17.2 L hematocrit (test code = hematocrit) 35.0 % 35.0-51.0 mean corpuscular volume (valeria t code = mean corpuscular volume) 93.3 fL 83.0-100.0 mean corpuscular hemoglobin (test code = mean corpuscular hemoglobin) 29.6 pg 26.8-33.4 mean corpuscular HGB conc (t est code = mean corpuscular HGB conc) 31.7 g/dL 30.0-35.0 red cell distribution width (test code = red cell distribution width) 13.8 % 12.0-14.0 platelet count (test code = platelet count) 278 K/uL 175-450 mean platelet volume (test c ode = mean platelet volume) 11.7 fL 9.4-12.6 neutrophils % (test code = neutrophils %) 63.0 % 44.7-82.4 Ig% (test code = Ig%) 1.2 % 0.0-0.4 H lymphocyte% (test code = lymphocyte%) 18.5 % 10.0-50.0 mono % (test code = mono %) 13.9 % 3.9-13.4 H eos % (test code = eos %) 3.0 % 0.0-6.4 basophil % (test code = baso renato %) 0.4 % 0.2-1.2 absolute neutrophil count (t est code = absolute neutrophil count) 6.28 K/uL 1.78-5.38 H Ig# (test code = Ig#) 0.12 K/uL 0.00-0.03 H lymph # (test code = lymph #) 1.84 K/uL 1.32-3.57 mono # (test code = mono #) 1.39 K/uL 0.30-0.82 H eos # (test code = eos #) 0.30 K/uL 0.04-0.54 basophil # (test code = baso renato #) 0.04 K/uL 0.01-0.08 NRBC% (test code = NRBC%) 0 /100 WBC 0-0.2 NRBC# (test code = NRBC#) 0 K/uL [facility] metabolic [id number] 13:48:00* Test Item Value Reference Range Interpretation Comme nts glucose (test code = glucose) 105 mg/dL 82-115 blood urea nitrogen (test co de = blood urea nitrogen) 12 mg/dL 8-23 osmolality calculated,serum (test code = osmolality calculated,serum) 283 mOsm/kg 280-300 creatinine (test code = creatinine) 1.33 mg/dL 0.70-1.20 H glomerular filtration rate ( test code = glomerular filtration rate) 52.85 L BUN/creatinine ratio (test c ode = BUN/creatinine ratio) 9.0 12.0-20.0 L sodium level (test code = so dium level) 142 mmol/L 135-145 potassium level (test code = potassium level) 4.0 mmol/L 3.5-5.2 chloride level (test code = chloride level) 104 mmol/L 98-108 CO2 (test code = CO2) 27 mmol/L 21-32 anion gap (test code = anion gap) 15.0 mEq/L 12.0-20.0 calcium level (test code = calcium level) 9.3 mg/dL 8.8-10.2 [facility] W Auto Differential panel - [id number] 13:22:00 * Test Item Value Reference Range Interpretation Comme nts white blood count (test code = white blood count) 8.3 K/uL 4.0-12.3 red blood count (test code = red blood count) 3.49 M/uL 3.80-5.80 L hemoglobin (test code = hemoglobin) 10.2 g/dL 11.7-17.2 L hematocrit (test code = hematocrit) 32.7 % 35.0-51.0 L mean corpuscular volume (valeria t code = mean corpuscular volume) 93.7 fL 83.0-100.0 mean corpuscular hemoglobin (test code = mean corpuscular hemoglobin) 29.2 pg 26.8-33.4 mean corpuscular HGB conc (t est code = mean corpuscular HGB conc) 31.2 g/dL 30.0-35.0 red cell distribution width (test code = red cell distribution width) 13.9 % 12.0-14.0 platelet count (test code = platelet count) 253 K/uL 175-450 ipf# (test code = ipf#) 28.6 ipf% (test code = ipf%) 11.3 % 0-8 H mean platelet volume (test c ode = mean platelet volume) 13.8 fL 9.4-12.6 H neutrophils % (test code = neutrophils %) 66.5 % 44.7-82.4 Ig% (test code = Ig%) 0.5 % 0.0-0.4 H lymphocyte% (test code = lymphocyte%) 17.8 % 10.0-50.0 mono % (test code = mono %) 12.5 % 3.9-13.4 eos % (test code = eos %) 2.2 % 0.0-6.4 basophil % (test code = baso renato %) 0.5 % 0.2-1.2 absolute neutrophil count (t est code = absolute neutrophil count) 5.54 K/uL 1.78-5.38 H Ig# (test code = Ig#) 0.04 K/uL 0.00-0.03 H lymph # (test code = lymph #) 1.48 K/uL 1.32-3.57 mono # (test code = mono #) 1.04 K/uL 0.30-0.82 H eos # (test code = eos #) 0.18 K/uL 0.04-0.54 basophil # (test code = baso renato #) 0.04 K/uL 0.01-0.08 NRBC% (test code = NRBC%) 0 /100 WBC 0-0.2 NRBC# (test code = NRBC#) 0 K/uL [facility] [id number] 11:51:00* Test Item Value Reference Range Interpretation Comme nts thyroid stimulating hormone L (test code = thyroid stimulating hormone L) 2.48 uIU/mL 0.36-3.74 [facility] [id number] 11:51:00* Test Item Value Reference Range Interpretation Comme nts thyroid stimulating hormone L (test code = thyroid stimulating hormone L) 2.48 uIU/mL 0.36-3.74 [facility] [id number] 11:51:00* Test Item Value Reference Range Interpretation Comme nts thyroid stimulating hormone L (test code = thyroid stimulating hormone L) 2.48 uIU/mL 0.36-3.74 [facility] [id number] 11:42:00* Test Item Value Reference Range Interpretation Comme nts Hemoglobin A1c/Hemoglobin.to alexei in Blood (test code = 4548-4) 7.6 % 4.0-6.0 [id number] 11:42:00* Test Item Value Reference Range Interpretation Comme nts Hemoglobin A1c/Hemoglobin.to alexei in Blood (test code = 4548-4) 7.6 % 4.0-6.0 H [facility] [id number] 11:42:00* Test Item Value Reference Range Interpretation Comme nts Hemoglobin A1c/Hemoglobin.to alexei in Blood (test code = 4548-4) 7.6 % 4.0-6.0 H [facility] 2000 [facility] - Serum or Plasma 2023-07-27 11:39:00* Test Item Value Reference Range Interpretation Comme nts glucose (test code = glucose) 141 mg/dL 82-115 H blood urea nitrogen (test co de = blood urea nitrogen) 25 mg/dL 8-23 H osmolality calculated,serum (test code = osmolality calculated,serum) 286 mOsm/kg 280-300 creatinine (test code = creatinine) 1.86 mg/dL 0.70-1.20 H glomerular filtration rate ( test code = glomerular filtration rate) 35.89 L BUN/creatinine ratio (test c ode = BUN/creatinine ratio) 13.4 12.0-20.0 sodium level (test code = so dium level) 140 mmol/L 135-145 potassium level (test code = potassium level) 4.4 mmol/L 3.5-5.2 chloride level (test code = chloride level) 103 mmol/L 98-108 CO2 (test code = CO2) 26 mmol/L 21-32 anion gap (test code = anion gap) 15.4 mEq/L 12.0-20.0 calcium level (test code = calcium level) 9.2 mg/dL 8.8-10.2 total protein (test code = t otal protein) 7.5 g/dL 6.6-8.7 albumin (test code = albumin) 3.7 g/dL 3.5-5.2 globulin (test code = globulin) 3.8 g/dL 1.5-4.5 A/G ratio (test code = A/G ratio) 1.0 >1.0 bilirubin,total (test code = bilirubin,total) 0.3 mg/dL 0.0-1.2 AST/SGOT (test code = AST/SGOT) 17 U/L 15-40 ALT/SGPT (test code = ALT/SGPT) 23 U/L 0-41 alkaline phosphatase, total (test code = alkaline phosphatase, total) 101 U/L 40-130 [facility] [id number] 11:39:00* Test Item Value Reference Range Interpretation Comme nts cholesterol level (test code = cholesterol level) 123 mg/dL 150-200 L triglycerides level (test co de = triglycerides level) 256 mg/dL <150 H HDL cholesterol (test code = HDL cholesterol) 27 mg/dL >55 L Cholesterol in LDL [Mass/vol ume] in Serum or Plasma (test code = 2089-1) 52 mg/dL <100 cholesterol risk ratio (test code = cholesterol risk ratio) 4.555 [facility] [id number] 11:39:00* Test Item Value Reference Range Interpretation Comme nts cholesterol level (test code = cholesterol level) 123 mg/dL 150-200 L triglycerides level (test co de = triglycerides level) 256 mg/dL <150 H HDL cholesterol (test code = HDL cholesterol) 27 mg/dL >55 L Cholesterol in LDL [Mass/vol ume] in Serum or Plasma (test code = 2089-1) 52 mg/dL <100 cholesterol risk ratio (test code = cholesterol risk ratio) 4.555 [facility] - Serum or Plasma 2023-07-27 11:39:00* Test Item Value Reference Range Interpretation Comme nts glucose (test code = glucose) 141 mg/dL 82-115 H blood urea nitrogen (test co de = blood urea nitrogen) 25 mg/dL 8-23 H osmolality calculated,serum (test code = osmolality calculated,serum) 286 mOsm/kg 280-300 creatinine (test code = creatinine) 1.86 mg/dL 0.70-1.20 H glomerular filtration rate ( test code = glomerular filtration rate) 35.89 L BUN/creatinine ratio (test c ode = BUN/creatinine ratio) 13.4 12.0-20.0 sodium level (test code = so dium level) 140 mmol/L 135-145 potassium level (test code = potassium level) 4.4 mmol/L 3.5-5.2 chloride level (test code = chloride level) 103 mmol/L 98-108 CO2 (test code = CO2) 26 mmol/L 21-32 anion gap (test code = anion gap) 15.4 mEq/L 12.0-20.0 calcium level (test code = calcium level) 9.2 mg/dL 8.8-10.2 total protein (test code = t otal protein) 7.5 g/dL 6.6-8.7 albumin (test code = albumin) 3.7 g/dL 3.5-5.2 globulin (test code = globulin) 3.8 g/dL 1.5-4.5 A/G ratio (test code = A/G ratio) 1.0 >1.0 bilirubin,total (test code = bilirubin,total) 0.3 mg/dL 0.0-1.2 AST/SGOT (test code = AST/SGOT) 17 U/L 15-40 ALT/SGPT (test code = ALT/SGPT) 23 U/L 0-41 alkaline phosphatase, total (test code = alkaline phosphatase, total) 101 U/L 40-130 [facility] [id number] 11:39:00* Test Item Value Reference Range Interpretation Comme nts cholesterol level (test code = cholesterol level) 123 mg/dL 150-200 L triglycerides level (test co de = triglycerides level) 256 mg/dL <150 H HDL cholesterol (test code = HDL cholesterol) 27 mg/dL >55 L Cholesterol in LDL [Mass/vol ume] in Serum or Plasma (test code = 2089-1) 52 mg/dL <100 cholesterol risk ratio (test code = cholesterol risk ratio) 4.555 [facility] [id number] 11:39:00* Test Item Value Reference Range Interpretation Comme nts cholesterol level (test code = cholesterol level) 123 mg/dL 150-200 L triglycerides level (test co de = triglycerides level) 256 mg/dL <150 H HDL cholesterol (test code = HDL cholesterol) 27 mg/dL >55 L Cholesterol in LDL [Mass/vol ume] in Serum or Plasma (test code = 2089-1) 52 mg/dL <100 cholesterol risk ratio (test code = cholesterol risk ratio) 4.555 [facility] 2000 [facility] - Serum or Plasma 2023-07-27 11:39:00* Test Item Value Reference Range Interpretation Comme nts glucose (test code = glucose) 141 mg/dL 82-115 H blood urea nitrogen (test co de = blood urea nitrogen) 25 mg/dL 8-23 H osmolality calculated,serum (test code = osmolality calculated,serum) 286 mOsm/kg 280-300 creatinine (test code = creatinine) 1.86 mg/dL 0.70-1.20 H glomerular filtration rate ( test code = glomerular filtration rate) 35.89 L BUN/creatinine ratio (test c ode = BUN/creatinine ratio) 13.4 12.0-20.0 sodium level (test code = so dium level) 140 mmol/L 135-145 potassium level (test code = potassium level) 4.4 mmol/L 3.5-5.2 chloride level (test code = chloride level) 103 mmol/L 98-108 CO2 (test code = CO2) 26 mmol/L 21-32 anion gap (test code = anion gap) 15.4 mEq/L 12.0-20.0 calcium level (test code = calcium level) 9.2 mg/dL 8.8-10.2 total protein (test code = t otal protein) 7.5 g/dL 6.6-8.7 albumin (test code = albumin) 3.7 g/dL 3.5-5.2 globulin (test code = globulin) 3.8 g/dL 1.5-4.5 A/G ratio (test code = A/G ratio) 1.0 >1.0 bilirubin,total (test code = bilirubin,total) 0.3 mg/dL 0.0-1.2 AST/SGOT (test code = AST/SGOT) 17 U/L 15-40 ALT/SGPT (test code = ALT/SGPT) 23 U/L 0-41 alkaline phosphatase, total (test code = alkaline phosphatase, total) 101 U/L 40-130 [facility] [id number] 11:39:00* Test Item Value Reference Range Interpretation Comme nts cholesterol level (test code = cholesterol level) 123 mg/dL 150-200 L triglycerides level (test co de = triglycerides level) 256 mg/dL <150 H HDL cholesterol (test code = HDL cholesterol) 27 mg/dL >55 L Cholesterol in LDL [Mass/vol ume] in Serum or Plasma (test code = 2089-1) 52 mg/dL <100 cholesterol risk ratio (test code = cholesterol risk ratio) 4.555 [facility] [id number] 11:39:00* Test Item Value Reference Range Interpretation Comme nts cholesterol level (test code = cholesterol level) 123 mg/dL 150-200 L triglycerides level (test co de = triglycerides level) 256 mg/dL <150 H HDL cholesterol (test code = HDL cholesterol) 27 mg/dL >55 L Cholesterol in LDL [Mass/vol ume] in Serum or Plasma (test code = 2089-1) 52 mg/dL <100 cholesterol risk ratio (test code = cholesterol risk ratio) 4.555 [facility] [id number] 11:34:00* Test Item Value Reference Range Interpretation Comme nts color, urine (test code = color, urine) lt. yellow appearance, urine (test code = appearance, urine) turbid clear urine glucose (test code = urine glucose) negative negative bilirubin, urine (test code = bilirubin, urine) negative negative ketone, urine (test code = ketone, urine) negative negative specific gravity,urine (test code = specific gravity,urine) >= 1.030 1.003-1.030 blood urine (test code = blo od urine) negative negative pH,urine (test code = pH,urine) 5.500 5-9 protein urine (UA) (test cod e = protein urine (UA)) 1+ (30 mg/dL) negative A urobilinogen, urine (test co de = urobilinogen, urine) 0.2 E.U./dL 0.2-1.0 nitrate, urine (test code = nitrate, urine) negative negative urine leukocyte esterase (te st code = urine leukocyte esterase) negative negative RBC, urine (test code = RBC, urine) none seen 0-5 WBC, urine (test code = WBC, urine) none seen 0-5 epithelial cell (test code = epithelial cell) <2 0-5 bacteria, urine (test code = bacteria, urine) none detected none detect casts,urine (test code = casts,urine) none seen none detect urine culture added? (test c ode = urine culture added?) no amorphous sediment, urine (t est code = amorphous sediment, urine) large none seen [facility]* Test Item Value Reference Range Interpretation Comme nts color, urine (test code = color, urine) lt. yellow appearance, urine (test code = appearance, urine) turbid clear urine glucose (test code = urine glucose) negative negative bilirubin, urine (test code = bilirubin, urine) negative negative ketone, urine (test code = ketone, urine) negative negative specific gravity,urine (test code = specific gravity,urine) >= 1.030 1.003-1.030 blood urine (test code = blo od urine) negative negative pH,urine (test code = pH,urine) 5.500 5-9 protein urine (UA) (test cod e = protein urine (UA)) 1+ (30 mg/dL) negative A urobilinogen, urine (test co de = urobilinogen, urine) 0.2 E.U./dL 0.2-1.0 nitrate, urine (test code = nitrate, urine) negative negative urine leukocyte esterase (te st code = urine leukocyte esterase) negative negative RBC, urine (test code = RBC, urine) none seen 0-5 WBC, urine (test code = WBC, urine) none seen 0-5 epithelial cell (test code = epithelial cell) <2 0-5 bacteria, urine (test code = bacteria, urine) none detected none detect casts,urine (test code = casts,urine) none seen none detect urine culture added? (test c ode = urine culture added?) no amorphous sediment, urine (t est code = amorphous sediment, urine) large none seen [facility] 11:34:00* Test Item Value Reference Range Interpretation Comme nts color, urine (test code = color, urine) lt. yellow appearance, urine (test code = appearance, urine) turbid clear urine glucose (test code = urine glucose) negative negative bilirubin, urine (test code = bilirubin, urine) negative negative ketone, urine (test code = ketone, urine) negative negative specific gravity,urine (test code = specific gravity,urine) >= 1.030 1.003-1.030 blood urine (test code = blo od urine) negative negative pH,urine (test code = pH,urine) 5.500 5-9 protein urine (UA) (test cod e = protein urine (UA)) 1+ (30 mg/dL) negative A urobilinogen, urine (test co de = urobilinogen, urine) 0.2 E.U./dL 0.2-1.0 nitrate, urine (test code = nitrate, urine) negative negative urine leukocyte esterase (te st code = urine leukocyte esterase) negative negative RBC, urine (test code = RBC, urine) none seen 0-5 WBC, urine (test code = WBC, urine) none seen 0-5 epithelial cell (test code = epithelial cell) <2 0-5 bacteria, urine (test code = bacteria, urine) none detected none detect casts,urine (test code = casts,urine) none seen none detect urine culture added? (test c ode = urine culture added?) no amorphous sediment, urine (t est code = amorphous sediment, urine) large none seen [facility]Microalbumin [Mass/volume] in [id number] 11:27:00* Test Item Value Reference Range Interpretation Comme nts microalbumin random (test co de = microalbumin random) 136.5 mg/L 0-20 H [facility]Microalbumin [Mass/volume] in [id number] 11:27:00* Test Item Value Reference Range Interpretation Comme nts microalbumin random (test co de = microalbumin random) 136.5 mg/L 0-20 H [facility] [Mass/volume] in [id number] 11:27:00* Test Item Value Reference Range Interpretation Comme nts microalbumin random (test co de = microalbumin random) 136.5 mg/L 0-20 H [facility] W Auto Differential panel - [id number] 11:16:00 * Test Item Value Reference Range Interpretation Comme nts white blood count (test code = white blood count) 10.5 K/uL 4.0-12.3 red blood count (test code = red blood count) 3.87 M/uL 3.80-5.80 hemoglobin (test code = hemoglobin) 11.2 g/dL 11.7-17.2 L hematocrit (test code = hematocrit) 36.6 % 35.0-51.0 mean corpuscular volume (valeria t code = mean corpuscular volume) 94.6 fL 83.0-100.0 mean corpuscular hemoglobin (test code = mean corpuscular hemoglobin) 28.9 pg 26.8-33.4 mean corpuscular HGB conc (t est code = mean corpuscular HGB conc) 30.6 g/dL 30.0-35.0 red cell distribution width (test code = red cell distribution width) 13.9 % 12.0-14.0 platelet count (test code = platelet count) 275 K/uL 175-450 ipf# (test code = ipf#) 38.8 ipf% (test code = ipf%) 14.1 % 0-8 H mean platelet volume (test c ode = mean platelet volume) 13.7 fL 9.4-12.6 H neutrophils % (test code = neutrophils %) 61.3 % 44.7-82.4 Ig% (test code = Ig%) 2.3 % 0.0-0.4 H lymphocyte% (test code = lymphocyte%) 19.1 % 10.0-50.0 mono % (test code = mono %) 14.7 % 3.9-13.4 H eos % (test code = eos %) 1.9 % 0.0-6.4 basophil % (test code = baso renato %) 0.7 % 0.2-1.2 absolute neutrophil count (t est code = absolute neutrophil count) 6.43 K/uL 1.78-5.38 H Ig# (test code = Ig#) 0.24 K/uL 0.00-0.03 H lymph # (test code = lymph #) 2.00 K/uL 1.32-3.57 mono # (test code = mono #) 1.54 K/uL 0.30-0.82 H eos # (test code = eos #) 0.20 K/uL 0.04-0.54 basophil # (test code = baso renato #) 0.07 K/uL 0.01-0.08 NRBC% (test code = NRBC%) 0 /100 WBC 0-0.2 NRBC# (test code = NRBC#) 0 K/uL [facility] W Auto Differential panel - [id number] 11:16:00 * Test Item Value Reference Range Interpretation Comme nts white blood count (test code = white blood count) 10.5 K/uL 4.0-12.3 red blood count (test code = red blood count) 3.87 M/uL 3.80-5.80 hemoglobin (test code = hemoglobin) 11.2 g/dL 11.7-17.2 L hematocrit (test code = hematocrit) 36.6 % 35.0-51.0 mean corpuscular volume (valeria t code = mean corpuscular volume) 94.6 fL 83.0-100.0 mean corpuscular hemoglobin (test code = mean corpuscular hemoglobin) 28.9 pg 26.8-33.4 mean corpuscular HGB conc (t est code = mean corpuscular HGB conc) 30.6 g/dL 30.0-35.0 red cell distribution width (test code = red cell distribution width) 13.9 % 12.0-14.0 platelet count (test code = platelet count) 275 K/uL 175-450 ipf# (test code = ipf#) 38.8 ipf% (test code = ipf%) 14.1 % 0-8 H mean platelet volume (test c ode = mean platelet volume) 13.7 fL 9.4-12.6 H neutrophils % (test code = neutrophils %) 61.3 % 44.7-82.4 Ig% (test code = Ig%) 2.3 % 0.0-0.4 H lymphocyte% (test code = lymphocyte%) 19.1 % 10.0-50.0 mono % (test code = mono %) 14.7 % 3.9-13.4 H eos % (test code = eos %) 1.9 % 0.0-6.4 basophil % (test code = baso renato %) 0.7 % 0.2-1.2 absolute neutrophil count (t est code = absolute neutrophil count) 6.43 K/uL 1.78-5.38 H Ig# (test code = Ig#) 0.24 K/uL 0.00-0.03 H lymph # (test code = lymph #) 2.00 K/uL 1.32-3.57 mono # (test code = mono #) 1.54 K/uL 0.30-0.82 H eos # (test code = eos #) 0.20 K/uL 0.04-0.54 basophil # (test code = baso renato #) 0.07 K/uL 0.01-0.08 NRBC% (test code = NRBC%) 0 /100 WBC 0-0.2 NRBC# (test code = NRBC#) 0 K/uL [facility] W Auto Differential panel - [id number] 11:16:00 * Test Item Value Reference Range Interpretation Comme nts white blood count (test code = white blood count) 10.5 K/uL 4.0-12.3 red blood count (test code = red blood count) 3.87 M/uL 3.80-5.80 hemoglobin (test code = hemoglobin) 11.2 g/dL 11.7-17.2 L hematocrit (test code = hematocrit) 36.6 % 35.0-51.0 mean corpuscular volume (valeria t code = mean corpuscular volume) 94.6 fL 83.0-100.0 mean corpuscular hemoglobin (test code = mean corpuscular hemoglobin) 28.9 pg 26.8-33.4 mean corpuscular HGB conc (t est code = mean corpuscular HGB conc) 30.6 g/dL 30.0-35.0 red cell distribution width (test code = red cell distribution width) 13.9 % 12.0-14.0 platelet count (test code = platelet count) 275 K/uL 175-450 ipf# (test code = ipf#) 38.8 ipf% (test code = ipf%) 14.1 % 0-8 H mean platelet volume (test c ode = mean platelet volume) 13.7 fL 9.4-12.6 H neutrophils % (test code = neutrophils %) 61.3 % 44.7-82.4 Ig% (test code = Ig%) 2.3 % 0.0-0.4 H lymphocyte% (test code = lymphocyte%) 19.1 % 10.0-50.0 mono % (test code = mono %) 14.7 % 3.9-13.4 H eos % (test code = eos %) 1.9 % 0.0-6.4 basophil % (test code = baso renato %) 0.7 % 0.2-1.2 absolute neutrophil count (t est code = absolute neutrophil count) 6.43 K/uL 1.78-5.38 H Ig# (test code = Ig#) 0.24 K/uL 0.00-0.03 H lymph # (test code = lymph #) 2.00 K/uL 1.32-3.57 mono # (test code = mono #) 1.54 K/uL 0.30-0.82 H eos # (test code = eos #) 0.20 K/uL 0.04-0.54 basophil # (test code = baso renato #) 0.07 K/uL 0.01-0.08 NRBC% (test code = NRBC%) 0 /100 WBC 0-0.2 NRBC# (test code = NRBC#) 0 K/uL [facility]*2023-04-12 13:52:58 [facility] : 1950 Sex: MExam: CT head wit hout contrast.Clinical History: hemorrhagic stroke;HEMMORAGIC STROKE.Location: D4.Findings: Multislice axial noncontrast images are obtained through the head. Coronal and sagittal reconstructed images are obtained and are used in interpretation.No comparison studies. There is moderate diffuse cerebral volume loss appropriate for age. There are mild periventricular white matter changes. No areas of abnormal density are otherwise identified within the brain. There is no mass effect. No hydrocephalus. No intra or extra-axial hemorrhage. No evidence of acute infarct. No abnormalities are noted ofthe visualized skeletal structures, sinuses, or soft tissues.Impression:1. No acute abnormalities are identified.2. There are mild periventricular white matter changes.*One or more of the following radiation dose reduction techniques was used: automated exposure control, adjustment of mA and/or KV according to patient size, and/or utilization of iterative reconstruction technique.Electronically signed by: James Baker MD 04/12/2023 1:52 PM CDT
[2023-12-13 15:07] LABS: Absolute Basophils 0.1 K/uL (0-0.5); Absolute Eosinophils 0.3 K/uL (0-0.5); Absolute Lymphocytes (CBC) 2.1 K/uL (0.7-4.9); Absolute Monocytes 1.4 K/uL (0.1-1.3); Absolute Neutrophil 4.8 K/uL (1.8-8.0); Basophils % 0.7 % (0-1.3); Eosinophils % 2.9 % (0-4.4); Hematocrit 33.8 % (39.6-49.0); Lymphocytes % 24.6 % (15.3-44.8); MCH 27.2 pg (27.0-35.0); MCHC 32.7 g/dL (32.0-36.0); MCV 83.4 fL (80-100); MPV 10.2 fL (7.6-11.3); Monocytes % 16.4 % (3.3-12.3); Neutrophils % 55.4 % (41.7-73.7); Nucleated Red Blood Cells % 0.1 % (0-0); Platelets 222 thou/uL (152-406); RBC Red Blood Cell Count 4.05 M/uL (4.33-5.43); Red Cell Distribution Width 16.4 % (12.1-15.2)
[2023-12-13 15:46] LABS: Albumin 3.6 g/dL (3.4-5.0); Albumin/Globulin Ratio 0.8 (1.1-1.8); Anion Gap 7.3 mEq/L (5.0-15.0); Bilirubin Total 0.3 mg/dL (0.2-1.0); Globulin 4.8 g/dL (2.3-3.5); Potassium 4.3 mEq/L (3.5-5.1); Protein, Total 8.4 g/dL (6.4-8.2)
--- NOTE | 2023-12-13 16:29 | RAD REPORT ---
EXAM DESCRIPTION: RAD - Tib Fib Left - 12/13/2023 4:19 pm CLINICAL HISTORY: PAIN COMPARISON: <Comparisons> FINDINGS: There is hardware present in the lateral and medial malleoli. Moderate soft tissue swellin g is present surrounding the ankle. No fracture seen.
--- NOTE | 2023-12-13 16:46 | ER ---
Nurse's Notes [facility] Name: Trey Lira Age: 73 yrs Sex: Male : 1950 Arrival Date: 12/13/2023 Time: 14:20 Bed 11 Private MD: Diagnosis: Cellulitis of left lower limb Presentation: 12/12 14:30 Chief complaint: Spouse and/or significant other states: fell a couple days ago and iw last night, has injury to left lower leg, was standing up from his wheelchair and hit his luke against something. Coronavirus screen: At this time, the client does not indicate any symptoms associated with coronavirus-19. Ebola Screen: Patient negative for fever greater than or equal to 101.5 degrees Fahrenheit, and additional compatible Ebola Virus Disease symptoms Patient denies exposure to infectious person. Patient denies travel to an Ebola-affected area in the 21 days before illness onset. No symptoms or risks identified at this time. Initial Sepsis Screen: Does the patient meet any 2 criteria? No. Patient's initial sepsis screen is negative. Does the patient have a suspected source of infection? No. Patient's initial sepsis screen is negative. Risk Assessment: Do you want to hurt yourself or someone else? Patient reports no desire to harm self or others. Onset of symptoms was December 11, 2023. 14:30 Method Of Arrival: Wheelchair iw 14:30 Acuity: SEMAJ 3 iw Triage Assessment: 14:38 General: Appears in no apparent distress. Behavior is calm, cooperative. Pain: iw Complains of pain in left luke. Musculoskeletal: Swelling present in left luke. Injury Description: Bruise sustained to left luke is purple. Historical: - Allergies: 14:33 Clonidine; iw 14:33 SHELLFISH; iw - PMHx: 14:33 Hypertensive disorder; CVA; Diabetes mellitus; iw - PSHx: 14:33 kidney removed; several back surgeries; iw - Immunization history:: Adult Immunizations Pneumococcal vaccine is up to date, Flu vaccine is up to date. - Social history:: Smoking status: Patient denies any tobacco usage or history of. Screenin:00 [facility] ED Fall Risk Assessment (Adult) History of falling in the last 3 months, ko1 including since admission No falls in past 3 months (0 pts) Confusion or Disorientation No (0 pts) Intoxicated or Sedated No (0 pts) Impaired Gait Yes (1 pt) Mobility Assist Device Used Yes (1 pt) Altered Elimination No (0 pt) Score/Fall Risk Level 0 - 2 = Low Risk Oriented to surroundings, Maintained a safe environment, Educated pt \T\ family on fall prevention, incl call for assistance when getting out of bed, Assessed \T\ reinforced patient's understanding of fall precautions, Provided non-skid footwear, Hourly rounding (assess needs \T\ fall precautionary measures) done, Used ambulatory aids as needed (educated on \T\ assisted with), Used gait belt as appropriate. Abuse screen: Denies threats or abuse. Denies injuries from another. Nutritional screening: No deficits noted. Tuberculosis screening: No symptoms or risk factors identified. Assessment: 16:00 General: Appears unkempt, Behavior is calm, cooperative, appropriate for age. Pain: ko1 Complains of pain in left leg. Neuro: No deficits noted. Cardiovascular: No deficits noted. Respiratory: No deficits noted. GI: No deficits noted. : No deficits noted. EENT: No deficits noted. Derm: Wound noted left luke. Musculoskeletal: Reports pain in left leg. Vital Signs: 14:30 BP 152 / 76; Pulse 89; Resp 18; Temp 98.3; Pulse Ox 96% on R/A; Weight 104.33 kg; iw Height 5 ft. 8 in. ; 16:00 BP 148 / 72; Pulse 82; Resp 16; Temp 97.9; Pulse Ox 97% ; ko1 17:00 BP 137 / 77; Pulse 85; Resp 14; Temp 98; Pulse Ox 99% ; ko1 14:30 Body Mass Index 34.97 (104.33 kg, 172.72 cm) iw ED Course: 14:21 Patient arrived in ED. rg4 14:22 Jose Martin Sarabia MD is Attending Physician. ec2 14:33 Triage completed. iw 14:34 Arm band placed on. iw 15:08 Initial lab(s) drawn, by me, sent to lab. Inserted saline lock: 24 gauge in right hand, iw using aseptic technique. Blood collected. 15:08 CMP Sent. iw 15:08 CBC with Diff Sent. iw 16:00 Patient has correct armband on for positive identification. Allergy band placed. Fall ko1 risk band placed. Bed in low position. Call light in reach. Provided Education on: na. Pulse ox on. NIBP on. Door closed. Noise minimized. Lights dimmed. Warm blanket given. 16:00 No provider procedures requiring assistance completed. ko1 16:20 Tib Fib Left XRAY In Process Unspecified. EDMS 16:25 Kimberley Finn, RN is Primary Nurse. ko1 17:00 IV discontinued, intact, bleeding controlled, No redness/swelling at site. Pressure ko1 dressing applied. Administered Medications: 16:28 Drug: Boostrix Tdap IM 0.5 ml IM once; as a single dose Route: IM; Site: left deltoid; ko1 16:54 Follow up: Response: No adverse reaction ko1 16:29 Drug: Clindamycin IVPB 600 mg IVPB once over 30 mins; (mix in 50 mL) Route: IVPB; ko1 Infused Over: 30 mins; Site: right hand; 16:54 Follow up: Response: No adverse reaction; IV Status: Completed infusion; IV Intake: [id number] Medication: 16:33 Vaccine Information Statement (VIS) provided today. Questions and/or concerns ko1 addressed. VIS edition date: December 13, 2023. Intake: 16:54 IV: 50ml; Total: 50ml. ko1 Outcome: 16:45 Discharge ordered by . ec2 17:00 Discharged to home via wheelchair, with family, ko1 17:00 Condition: stable 17:00 Discharge instructions given to patient, family, Instructed on discharge instructions, follow up and referral plans. medication usage, wound care, Demonstrated understanding of instructions, follow-up care, medications, wound care, Prescriptions given X 1, 17:13 Patient left the ED. ko1 Signatures: Dispatcher [employer] Mary Aviles, RN RN Gila Cormier rg4 Kimberley Finn, RN RN ko1 Jose Martin Sarabia MD MD ec2 Corrections: (The following items were deleted from the chart) 14:35 14:30 BP 152 / 76; Resp 18bpm; Temp 98.3F; iw iw 14:40 14:30 Acuity: SEMAJ 4 iw iw
--- NOTE | 2023-12-13 16:46 | EDPHYS ---
Physician Documentation [facility] Name: Trey Lira Age: 73 yrs Sex: Male : 1950 Arrival Date: 12/13/2023 Time: 14:20 Bed 11 Private MD: ED Physician Jose Martin Sarabia HPI: 12/12 14:40 This 73 yrs old Male presents to ER via Wheelchair with complaints of Leg ec2 Injury. 14:40 Patient arrives today for evaluation of a left leg injury. States that he struck his ec2 left leg, luke, against some steel surface. Patient reports no falls or injuries. Patient states that the pain has progressed.. Historical: - Allergies: 14:33 Clonidine; iw 14:33 SHELLFISH; iw - PMHx: 14:33 Hypertensive disorder; CVA; Diabetes mellitus; iw - PSHx: 14:33 kidney removed; several back surgeries; iw - Immunization history:: Adult Immunizations Pneumococcal vaccine is up to date, Flu vaccine is up to date. - Social history:: Smoking status: Patient denies any tobacco usage or history of. ROS: 14:40 Constitutional: as per hpi ec2 Exam: 14:40 Constitutional: GEN: NAD Head: atraumatic Eyes: EOMI Ears: External ears are ec2 normal. CV: regular rate LUNGS: no respiratory distress ABD: non-distended SKIN: Abrasion noted to the anterior tibia, surrounding erythema. Another ecchymotic area noted to the distal tib-fib. Intact distal neurovascular status. MSK: no evidence of trauma NEURO: moves all extremities equally Vital Signs: 14:30 BP 152 / 76; Pulse 89; Resp 18; Temp 98.3; Pulse Ox 96% on R/A; Weight 104.33 kg; iw Height 5 ft. 8 in. ; 16:00 BP 148 / 72; Pulse 82; Resp 16; Temp 97.9; Pulse Ox 97% ; ko1 17:00 BP 137 / 77; Pulse 85; Resp 14; Temp 98; Pulse Ox 99% ; ko1 14:30 Body Mass Index 34.97 (104.33 kg, 172.72 cm) iw MDM: 14:35 Patient medically screened. ec2 14:40 Data reviewed: vital signs. ED course: Patient arrives today for a leg injury. ec2 Examination remarkable for skin findings as above. Will obtain radiograph of the left lower extremity to evaluate for fracture, will obtain lab work given the obvious infectious component to this, will treat with clindamycin. Evaluating for cellulitis, tib-fib fracture, electrolyte disturbances, anemia.. 15:49 ED course: CBC shows reassuring blood counts, metabolic profile with renal dysfunction ec2 and creatinine 1.9 and GFR of 37. Pending radiographs. . 16:44 ED course: Tib-fib without bony fracture. Ultimately patient is a fall risk I used ec2 shared decision making regarding inpatient hospitalization versus outpatient management and patient felt comfortable return to home. Will start on antibiotics and have him follow-up primary care doctor. Return precautions given.. 03 14:39 Order name: CBC with Diff; Complete Time: 15:49 ec2 12/12 14:39 Order name: CMP; Complete Time: 15:49 ec2 12/12 14:39 Order name: Tib Fib Left XRAY; Complete Time: 16:36 ec2 Administered Medications: 16:28 Drug: Boostrix Tdap IM 0.5 ml IM once; as a single dose Route: IM; Site: left deltoid; ko1 16:54 Follow up: Response: No adverse reaction ko1 16:29 Drug: Clindamycin IVPB 600 mg IVPB once over 30 mins; (mix in 50 mL) Route: IVPB; ko1 Infused Over: 30 mins; Site: right hand; 16:54 Follow up: Response: No adverse reaction; IV Status: Completed infusion; IV Intake: [id number] Disposition Summary: 12/13/23 16:45 Discharge Ordered Notes: Location: Home ec2 Condition: Stable ec2 Diagnosis - Cellulitis of left lower limb ec2 Followup: ec2 - With: Private Physician - When: - Reason: Re-evaluation by your physician Discharge Instructions: - Discharge Summary Sheet ec2 - Cellulitis, Adult ec2 Forms: - Medication Reconciliation Form ec2 - Thank You Letter ec2 - Antibiotic Education ec2 - Prescription Opioid Use ec2 - Patient Portal Instructions ec2 - Leadership Thank You Letter ec2 Prescriptions: - Clindamycin HCl 150 mg Oral capsule - take 3 capsule ORAL route every 8 hours for 7 days; 63 capsule; Refills: 0, ec2 Product Selection Permitted Signatures: Dispatcher [employer] Mary Aviles RN RN iw Oliver, Kathy, RN RN ko1 Jose Martin Sarabia, MD ec2
[2023-12-13 18:21] VITALS: BP 137/77; TEMP 98; O2SAT 99
== END ==
LOC: ER 14:20
DX: L03.116 Cellulitis of left lower limb (principal); Z88.8 Allergy status to other drugs, medicaments and biological substances; Z91.013 Allergy to seafood
CPT/HCPCS: 36415; 80053; 85025; 96365; 96372; 99284

== ENCOUNTER 2024-03-17 15:30 | Inpatient (IN) | payer OTHER ==
--- OUTSIDE RECORDS SUMMARY | 2024-03-17 18:49 | XMS REPORT | Continuity of Care Document ---
Author Name Unknown Address [address] [facility] [address] [place] [address] [facility] thconnect Address [address] [facility] [address] [place] [address] Care Team Providers Care Network Field Engineer Name Role Phone NONE, NONE Primary Care Physician Unavailab BLANCA Wing Attending Clinician Unavailable ENRIQUE MCGEE Attending Clinician Unavailable ENRIQUE MCGEE KIRAN Attending Clinician UnavailCALVIN Hester Attending Clinician Unavailabl e Zuniga_F Attending Clinician Unavailable Alphonse Draper Attending Clinician Unavailab Carleen Rodriguez Attending Clinician Unavailab OUSMANE Escoto Attending Clinician Unav ailable GUU_SHENG_YAW Attending Clinician Unavailable DR ANA LESTER Attending Clinician Unavailable ERICK CORRALES Attending Clinician Unavailable LAURIE BOWENS Attending Clinician Unavailable GHADA DEVINE Attending Clinician Unavail able JAK HERNADEZ Attending Clinician Unavailable SNEHAL CARBAJAL Attending Clinician UnavailBLANCA Fernandez Admitting Clinician Unavailable ENRIQUE MCGEE KIRAN Admitting Clinician Unavaila sharifa Geeunjaswinder_Tremaine Admitting Clinician Unavailable Alphonse Draper Admitting Clinician Unavailab le GUU_SHENG_YAW Admitting Clinician Unavailable DR ANA LESTER Admitting Clinician Unavailable GHADA DEVINE Admitting Clinician Unavail able Payers Payer Name Policy Type Policy Number Effective Date Expirati on Date Source [facility] [id number] [place]IC[place] [employer] [id number] 1989 00:00:00 [facility] 4 [id number] [place] [employer] [facility] [id number] 1989 00:00:00 1005 [id number] 2023 00:00:00 Social History Smoking Status Start Date Stop Date Source Former Smoker [facility] Medications Ordered Medication Name Filled Medication Name [...] MOUTH 2 TIMES DAILY FOR 5 DAYS [facility] triamcinolo ne acetonide 0.1 % topical cream APPLY TO AFFECTED AREAS 3 TIMES DAILY FOR 10 DAYS triamcinolo ne acetonide 0.1 % topical cream APPLY TO AFFECTED AREAS 3 TIMES DAILY FOR 10 DAYS No triamcinol one acetonide 0.1 % topical cream APPLY TO AFFECTED AREAS 3 TIMES DAILY FOR 10 DAYS [facility] venlafaxine ER 75 mg capsule,ext ended release 24 hr TAKE 3 CAPSULES BY MOUTH ONCE DAILY venlafaxine ER 75 mg capsule,ext ended release 24 hr TAKE 3 CAPSULES BY MOUTH ONCE DAILY No venlafaxin e ER 75 mg capsule,ex tended release 24 hr TAKE 3 CAPSULES BY MOUTH ONCE DAILY [facility] atorvastati n 80 mg tablet Take 1 tablet every day by oral route. atorvastati n 80 mg tablet Take 1 tablet every day by oral route. No 1 Q1D atorvastat in 80 mg tablet Take 1 tablet every day by oral route. [facility] carvedilol 25 mg tablet Take 1 tablet twice a day by oral route. carvedilol 25 mg tablet Take 1 tablet twice a day by oral route. No 1 BID carvedilol 25 mg tablet Take 1 tablet twice a day by oral route. [facility] folic acid 1 mg tablet Take 1 tablet every day by oral route. folic acid 1 mg tablet Take 1 tablet every day by oral route. No 1 Q1D folic acid 1 mg tablet Take 1 tablet every day by oral route. [facility] hydralazine 10 mg tablet TAKE 1 TABLET BY MOUTH THREE TIMES DAILY hydralazine 10 mg tablet TAKE 1 TABLET BY MOUTH THREE TIMES DAILY No hydralazin e 10 mg tablet TAKE 1 TABLET BY MOUTH THREE TIMES DAILY [facility] Lasix 40 mg tablet Take 1 tablet every day by oral route. Lasix 40 mg tablet Take 1 tablet every day by oral route. No 1 Q1D Lasix 40 mg tablet Take 1 tablet every day by oral route. [facility] losartan 50 mg tablet Take 1 tablet every day by oral route. losartan 50 mg tablet Take 1 tablet every day by oral route. No 1 Q1D losartan 50 mg tablet Take 1 tablet every day by oral route. [facility] melatonin 3 mg tablet Take by oral route. melatonin 3 mg tablet Take by oral route. No melatonin 3 mg tablet Take by oral route. [facility] methocarbam ol 750 mg tablet Take 1 tablet 3 times a day by oral route. methocarbam ol 750 mg tablet Take 1 tablet 3 times a day by oral route. No 1 TID methocarba mol 750 mg tablet Take 1 tablet 3 times a day by oral route. [facility] nitrofurant oin monohydrate /macrocryst als 100 mg capsule TAKE 1 CAPSULE BY MOUTH 2 TIMES DAILY FOR 5 DAYS nitrofurant oin monohydrate /macrocryst als 100 mg capsule TAKE 1 CAPSULE BY MOUTH 2 TIMES DAILY FOR 5 DAYS No nitrofuran toin monohydrat e/macrocry stals 100 mg capsule TAKE 1 CAPSULE BY MOUTH 2 TIMES DAILY FOR 5 DAYS [facility] tamsulosin 0.4 mg capsule Take 1 capsule every day by oral route. tamsulosin 0.4 mg capsule Take 1 capsule every day by oral route. No 1capsul e(s) Q1D tamsulosin 0.4 mg capsule Take 1 capsule every day by oral route. [facility] trazodone 100 mg tablet Take 1 tablet twice a day by oral route. trazodone 100 mg tablet Take 1 tablet twice a day by oral route. No 1 BID trazodone 100 mg tablet Take 1 tablet twice a day by oral route. [facility] triamcinolo ne acetonide 0.1 % topical cream APPLY TO AFFECTED AREAS 3 TIMES DAILY FOR 10 DAYS triamcinolo ne acetonide 0.1 % topical cream APPLY TO AFFECTED AREAS 3 TIMES DAILY FOR 10 DAYS No triamcinol one acetonide 0.1 % topical cream APPLY TO AFFECTED AREAS 3 TIMES DAILY FOR 10 DAYS [facility] venlafaxine ER 75 mg capsule,ext ended release 24 hr TAKE 3 CAPSULES BY MOUTH ONCE DAILY venlafaxine ER 75 mg capsule,ext ended release 24 hr TAKE 3 CAPSULES BY MOUTH ONCE DAILY No venlafaxin e ER 75 mg capsule,ex tended release 24 hr TAKE 3 CAPSULES BY MOUTH ONCE DAILY [facility] venlafaxine ER 75 mg tablet,exte nded release 24 hr Take 1 tablet every day by oral route. venlafaxine ER 75 mg tablet,exte nded release 24 hr Take 1 tablet every day by oral route. No 1 Q1D venlafaxin e ER 75 mg tablet,ext ended release 24 hr Take 1 tablet every day by oral route. [facility] hydralazine 10 mg tablet TAKE 1 TABLET BY MOUTH THREE TIMES DAILY hydralazine 10 mg tablet TAKE 1 TABLET BY MOUTH THREE TIMES DAILY No hydralazin e 10 mg tablet TAKE 1 TABLET BY MOUTH THREE TIMES DAILY [facility] atorvastati n 80 mg tablet Take 1 tablet every day by oral route. atorvastati n 80 mg tablet Take 1 tablet every day by oral route. No 1 Q1D atorvastat in 80 mg tablet Take 1 tablet every day by oral route. [facility] carvedilol 25 mg tablet Take 1 tablet twice a day by oral route. carvedilol 25 mg tablet Take 1 tablet twice a day by oral route. No 1 BID carvedilol 25 mg tablet Take 1 tablet twice a day by oral route. [facility] folic acid 1 mg tablet Take 1 tablet every day by oral route. folic acid 1 mg tablet Take 1 tablet every day by oral route. No 1 Q1D folic acid 1 mg tablet Take 1 tablet every day by oral route. [facility] hydralazine 10 mg tablet TAKE 1 TABLET BY MOUTH THREE TIMES DAILY hydralazine 10 mg tablet TAKE 1 TABLET BY MOUTH THREE TIMES DAILY No hydralazin e 10 mg tablet TAKE 1 TABLET BY MOUTH THREE TIMES DAILY [facility] Lasix 40 mg tablet Take 1 tablet every day by oral route. Lasix 40 mg tablet Take 1 tablet every day by oral route. No 1 Q1D Lasix 40 mg tablet Take 1 tablet every day by oral route. [facility] losartan 50 mg tablet Take 1 tablet every day by oral route. losartan 50 mg tablet Take 1 tablet every day by oral route. No 1 Q1D losartan 50 mg tablet Take 1 tablet every day by oral route. [facility] nitrofurant oin monohydrate /macrocryst als 100 mg capsule TAKE 1 CAPSULE BY MOUTH 2 TIMES DAILY FOR 5 DAYS nitrofurant oin monohydrate /macrocryst als 100 mg capsule TAKE 1 CAPSULE BY MOUTH 2 TIMES DAILY FOR 5 DAYS No nitrofuran toin monohydrat e/macrocry stals 100 mg capsule TAKE 1 CAPSULE BY MOUTH 2 TIMES DAILY FOR 5 DAYS [facility] melatonin 3 mg tablet Take by oral route. melatonin 3 mg tablet Take by oral route. No melatonin 3 mg tablet Take by oral route. [facility] methocarbam ol 750 mg tablet Take 1 tablet 3 times a day by oral route. methocarbam ol 750 mg tablet Take 1 tablet 3 times a day by oral route. No 1 TID methocarba mol 750 mg tablet Take 1 tablet 3 times a day by oral route. [facility] nitrofurant oin monohydrate /macrocryst als 100 mg capsule TAKE 1 CAPSULE BY MOUTH 2 TIMES DAILY FOR 5 DAYS nitrofurant oin monohydrate /macrocryst als 100 mg capsule TAKE 1 CAPSULE BY MOUTH 2 TIMES DAILY FOR 5 DAYS No nitrofuran toin monohydrat e/macrocry stals 100 mg capsule TAKE 1 CAPSULE BY MOUTH 2 TIMES DAILY FOR 5 DAYS [facility] tamsulosin 0.4 mg capsule Take 1 capsule every day by oral route. tamsulosin 0.4 mg capsule Take 1 capsule every day by oral route. No 1capsul e(s) Q1D tamsulosin 0.4 mg capsule Take 1 capsule every day by oral route. [facility] trazodone 100 mg tablet Take 1 tablet twice a day by oral route. trazodone 100 mg tablet Take 1 tablet twice a day by oral route. No 1 BID trazodone 100 mg tablet Take 1 tablet twice a day by oral route. [facility] triamcinolo ne acetonide 0.1 % topical cream APPLY TO AFFECTED AREAS 3 TIMES DAILY FOR 10 DAYS triamcinolo ne acetonide 0.1 % topical cream APPLY TO AFFECTED AREAS 3 TIMES DAILY FOR 10 DAYS No triamcinol one acetonide 0.1 % topical cream APPLY TO AFFECTED AREAS 3 TIMES DAILY FOR 10 DAYS [facility] venlafaxine ER 75 mg capsule,ext ended release 24 hr TAKE 3 CAPSULES BY MOUTH ONCE DAILY venlafaxine ER 75 mg capsule,ext ended release 24 hr TAKE 3 CAPSULES BY MOUTH ONCE DAILY No venlafaxin e ER 75 mg capsule,ex tended release 24 hr TAKE 3 CAPSULES BY MOUTH ONCE DAILY [facility] venlafaxine ER 75 mg tablet,exte nded release 24 hr Take 1 tablet every day by oral route. venlafaxine ER 75 mg tablet,exte nded release 24 hr Take 1 tablet every day by oral route. No 1 Q1D venlafaxin e ER 75 mg tablet,ext ended release 24 hr Take 1 tablet every day by oral route. [facility] triamcinolo ne acetonide 0.1 % topical cream APPLY TO AFFECTED AREAS 3 TIMES DAILY FOR 10 DAYS triamcinolo ne acetonide 0.1 % topical cream APPLY TO AFFECTED AREAS 3 TIMES DAILY FOR 10 DAYS No triamcinol one acetonide 0.1 % topical cream APPLY TO AFFECTED AREAS 3 TIMES DAILY FOR 10 DAYS [facility] venlafaxine ER 75 mg capsule,ext ended release 24 hr TAKE 3 CAPSULES BY MOUTH ONCE DAILY venlafaxine ER 75 mg capsule,ext ended release 24 hr TAKE 3 CAPSULES BY MOUTH ONCE DAILY No venlafaxin e ER 75 mg capsule,ex tended release 24 hr TAKE 3 CAPSULES BY MOUTH ONCE DAILY [facility] hydralazine 10 mg tablet TAKE 1 TABLET BY MOUTH THREE TIMES DAILY hydralazine 10 mg tablet TAKE 1 TABLET BY MOUTH THREE TIMES DAILY No hydralazin e 10 mg tablet TAKE 1 TABLET BY MOUTH THREE TIMES DAILY [facility] nitrofurant oin monohydrate /macrocryst als 100 mg capsule TAKE 1 CAPSULE BY MOUTH 2 TIMES DAILY FOR 5 DAYS nitrofurant oin monohydrate /macrocryst als 100 mg capsule TAKE 1 CAPSULE BY MOUTH 2 TIMES DAILY FOR 5 DAYS No nitrofuran toin monohydrat e/macrocry stals 100 mg capsule TAKE 1 CAPSULE BY MOUTH 2 TIMES DAILY FOR 5 DAYS [facility] triamcinolo ne acetonide 0.1 % topical cream APPLY TO AFFECTED AREAS 3 TIMES DAILY FOR 10 DAYS triamcinolo ne acetonide 0.1 % topical cream APPLY TO AFFECTED AREAS 3 TIMES DAILY FOR 10 DAYS No triamcinol one acetonide 0.1 % topical cream APPLY TO AFFECTED AREAS 3 TIMES DAILY FOR 10 DAYS [facility] venlafaxine ER 75 mg capsule,ext ended release 24 hr TAKE 3 CAPSULES BY MOUTH ONCE DAILY venlafaxine ER 75 mg capsule,ext ended release 24 hr TAKE 3 CAPSULES BY MOUTH ONCE DAILY No venlafaxin e ER 75 mg capsule,ex tended release 24 hr TAKE 3 CAPSULES BY MOUTH ONCE DAILY [facility] hydralazine 10 mg tablet TAKE 1 TABLET BY MOUTH THREE TIMES DAILY hydralazine 10 mg tablet TAKE 1 TABLET BY MOUTH THREE TIMES DAILY No hydralazin e 10 mg tablet TAKE 1 TABLET BY MOUTH THREE TIMES DAILY [facility] nitrofurant oin monohydrate /macrocryst als 100 mg capsule TAKE 1 CAPSULE BY MOUTH 2 TIMES DAILY FOR 5 DAYS nitrofurant oin monohydrate /macrocryst als 100 mg capsule TAKE 1 CAPSULE BY MOUTH 2 TIMES DAILY FOR 5 DAYS No nitrofuran toin monohydrat e/macrocry stals 100 mg capsule TAKE 1 CAPSULE BY MOUTH 2 TIMES DAILY FOR 5 DAYS [facility] triamcinolo ne acetonide 0.1 % topical cream APPLY TO AFFECTED AREAS 3 TIMES DAILY FOR 10 DAYS triamcinolo ne acetonide 0.1 % topical cream APPLY TO AFFECTED AREAS 3 TIMES DAILY FOR 10 DAYS No triamcinol one acetonide 0.1 % topical cream APPLY TO AFFECTED AREAS 3 TIMES DAILY FOR 10 DAYS [facility] venlafaxine ER 75 mg capsule,ext ended release 24 hr TAKE 3 CAPSULES BY MOUTH ONCE DAILY venlafaxine ER 75 mg capsule,ext ended release 24 hr TAKE 3 CAPSULES BY MOUTH ONCE DAILY No venlafaxin e ER 75 mg capsule,ex tended release 24 hr TAKE 3 CAPSULES BY MOUTH ONCE DAILY [facility] hydralazine 10 mg tablet TAKE 1 TABLET BY MOUTH THREE TIMES DAILY hydralazine 10 mg tablet TAKE 1 TABLET BY MOUTH THREE TIMES DAILY No hydralazin e 10 mg tablet TAKE 1 TABLET BY MOUTH THREE TIMES DAILY [facility] Vital Signs Vital Name Observation Time Observation Value Comments S ource Height 2023-10-23 00:00:00 68 [in_i] [facility] Body Weight 2023-09-11 00:00:00 230 [lb_av] [facility] BP Diastolic 2023-09-11 00:00:00 97 mm[Hg] [facility] Height 2023-09-11 00:00:00 68 [in_i] [facility] BMI (Body Mass Index) 2023-09-11 00:00:00 35 kg/m2 [facility] BP Systolic 2023-09-11 00:00:00 180 mm[Hg] [facility] Procedures Procedure Date / Time Performed Performing Clinicia n Source XR, clavicle 2023-09-11 00:00:00 [facility] Encounters Start Date/Time End Date/Time Encounter Type Admission Type Attending Clinicians Care Facility Care Department Encounter ID Source 2023-07-11 07:52:00 Inpatient ER BLANCA GREEN [facility] [id number] [facility] 2023-04-25 08:38:27 Outpatient READMISSIO N EVERARDO ENRIQUE ENCCLR ENCCLR [id number] ENCCLR 2023-04-10 14:09:29 Outpatient 3 ENRIQUE MCGEE ENCSL OT [id number] [facility] [place] 2024-03-17 09:24:00 2024-03-17 17:35:00 Emergency ER CALVIN KYLE [facility] [id number] [facility] 2024-03-17 09:24:00 2024-03-17 17:35:00 emergency [facility] [id number] 2023-12-14 00:00:00 2023-12-14 00:00:00 Outpatient Zuniga_F MMG MMG [id number] [facility] 2023-11-23 00:00:00 2023-11-23 00:00:00 Outpatient Zuniga_F MMG MMG [id number] [facility] 2023-11-20 00:00:00 2023-11-20 00:00:00 Outpatient Zuniga_F MMG MMG [id number] [facility] 2023-11-09 00:00:00 2023-11-09 00:00:00 Outpatient Zuniga_F MMG MMG [id number] [facility] 2023-11-01 00:00:00 2023-11-01 00:00:00 Outpatient Zuniga_F MMG MMG [id number] [facility] 2023-10-26 00:00:00 2023-10-26 00:00:00 [facility] [id number] [facility] 2023-10-23 00:00:00 2023-10-23 00:00:00 Alphonse Draper MD: [address] [place] [address] , Ph. MMG [place] - [facility] [id number] [facility] 2023-10-12 00:00:00 2023-10-12 00:00:00 [facility] [id number] [facility] 2023-10-02 15:51:00 2023-10-05 23:00:00 Inpatient ER Alphonse Draper [facility] [id number] [facility] 2023-10-02 15:51:00 2023-10-05 23:00:00 observatio n encounter [facility] [id number] 2023-09-24 17:23:00 2023-09-24 22:30:00 Emergency ER Carleen Fonseca [facility] [id number] [facility] 2023-09-24 17:23:00 2023-09-24 22:30:00 emergency [facility] [id number] 2023-09-22 00:00:00 2023-09-22 00:00:00 Outpatient Zuniga_F MMG [facility] [id number] [facility] 2023-09-11 11:37:00 2023-09-11 11:37:00 Outpatient OUSMANE ALLEN [facility] [id number] [facility] 2023-09-11 00:00:00 2023-09-11 00:00:00 Outpatient Zuniga_F MMG [facility] [id number] [facility] 2023-09-11 00:00:00 2023-09-11 00:00:00 Ousmane Marrero MD: [address] [place] [address], [address], [place] [address] , Ph. MMG LT[facility], located within [facility] [id number] [facility] 2023-09-10 00:00:00 2023-09-10 00:00:00 Alphonse Draper MD: [place] [address] , Ph. MM[facility] LT[facility] [id number] [facility] 2023-09-05 00:00:00 2023-09-05 00:00:00 Outpatient Zuniga_F MMG [facility] [id number] [facility] 2023-09-05 00:00:00 2023-09-05 00:00:00 Outpatient Zuniga_F MMG [facility] [id number] [facility] 2023-08-29 09:41:00 2023-08-29 09:41:00 Outpatient Alphonse Paz [facility] [id number] [facility] 2023-08-18 00:00:00 2023-08-18 00:00:00 Outpatient Zuniga_F MMG [facility] [id number] [facility] 2023-08-14 00:00:00 2023-08-14 00:00:00 Alphonse Draper MD: [address] [place] [address] , Ph. MMG LT[facility] [id number] [facility] 2023-08-12 11:24:00 2023-08-12 11:24:00 Outpatient Alphonse Paz [facility] [id number] [facility] 2023-08-06 00:00:00 2023-08-06 00:00:00 Outpatient Zuniga_F MMG MMG [id number] [facility] 2023-08-06 00:00:00 2023-08-06 00:00:00 Outpatient Zuniga_F MMG MMG [id number] [facility] 2023-08-02 12:17:00 2023-08-02 12:17:00 Outpatient Alphonse Paz [facility] [id number] [facility] 2023-08-01 00:00:00 2023-08-01 00:00:00 Alphonse Draper MD: [address] [place] [address] , Ph. MMG LT[facility] located [facility] [id number] [facility] 2023-07-31 00:00:00 2023-07-31 00:00:00 Outpatient Zuniga_F MMG MMG [id number] [facility] 2023-07-31 00:00:00 2023-07-31 00:00:00 Outpatient Zuniga_F MMG MMG [id number] [facility] 2023-07-31 00:00:00 2023-07-31 00:00:00 Outpatient Zuniga_F MMG MMG [id number] [facility] 2023-07-28 00:00:00 2023-07-28 00:00:00 Outpatient Zuniga_F MMG MMG [id number] [facility] 2023-07-28 00:00:00 2023-07-28 00:00:00 Alphonse Draper MD: [address] [facility], [address], [place] [address] , Ph. MMG [place] - [facility] [id number] [facility] 2023-07-27 09:54:00 2023-07-27 09:54:00 Outpatient EILEEN Alphonse Draper [facility] [id number] [facility] 2023-07-26 00:00:00 2023-07-26 00:00:00 Outpatient Baron_F [facility] [id number] [facility] 2023-07-13 14:30:00 2023-07-13 21:02:00 Inpatient BLANCA MANSFIELD [facility] [id number] [facility] 2023-05-24 00:00:00 2023-05-24 00:00:00 Outpatient GUU_SHENG_Y AW [facility] [id number] [facility] 2023-04-11 13:14:00 2023-04-25 13:57:00 Inpatient ENRIQUE MARTELLENA CVA [id number] [facility] Re[facility] [place] 2023-04-12 10:47:00 2023-04-12 23:59:00 Outpatient ANA TORRES [facility] [id number] [facility] 2023-03-23 09:54:00 2023-03-23 09:54:00 Outpatient ERICK MEDEL [facility] [id number] [facility] 2022-10-12 00:00:00 2022-10-12 00:00:00 Outpatient GUU_SHENG_Y [facility] [id number] [facility] 2022-10-11 00:00:00 2022-10-11 00:00:00 Outpatient GUU_SHENG_Y AW [facility] [id number] [facility] 2022-10-10 00:00:00 2022-10-10 00:00:00 Outpatient GUU_SHENG_Y AW [facility] [id number] [facility] 2022-09-01 07:22:00 2022-09-30 00:01:00 Outpatient LAURIE BRADSHAW [facility] [id number] [facility] 2022-08-30 09:00:00 2022-08-30 23:59:00 ambulatory [id number] 2022-08-30 09:00:00 2022-08-30 00:01:00 Outpatient LAURIE BRADSHAW [facility] [id number] [facility] 2022-08-15 08:00:00 2022-08-15 08:00:00 Outpatient LAURIE BRADSHAW [facility] [id number] [facility] 2022-08-14 09:00:00 2022-08-14 09:00:00 Outpatient LAURIE BARDSHAW [facility] [id number] [facility] 2022-08-10 07:24:00 2022-08-10 07:24:00 Outpatient LAURIE BRADSHAW [facility] [id number] [facility] 2022-07-25 00:00:00 2022-07-25 00:00:00 Outpatient GUU_SHENG_Y AW [facility] 2022-07-24 00:00:00 2022-07-24 00:00:00 Outpatient GUU_SHENG_Y AW [facility] [id number] [facility] h Program 2021-08-29 09:03:00 2021-08-30 19:21:00 Inpatient ER GHADA DEVINE [facility] [id number] [facility] 2021-08-23 12:33:00 2021-08-23 15:25:00 Emergency ER JAK HERNADEZ [facility] [id number] [facility] 2021-08-19 16:32:00 2021-08-19 22:00:00 Emergency TR SNEHAL CARBAJAL [facility] [id number] [facility] Results Test Description Test Time Test Comments Results Result [id number] 12:24:00* Test Item Value Reference Range Interpretation Comme nts blood glucose monitoring (te st code = blood glucose monitoring) 185 mg/dL 70.0-110 [facility] [id number] 07:24:00* Test Item Value Reference Range Interpretation Comme nts blood glucose monitoring (te st code = blood glucose monitoring) 139 mg/dL 70.0-110 [facility] [id number] 06:21:00* Test Item Value Reference Range Interpretation Comme nts glucose (test code = glucose) 125 mg/dL [...] code = calcium level) 9.2 mg/dL 8.8-10.2 [facility] W Auto Differential panel - [id number] 06:00:00 * Test Item Value Reference Range [...] NRBC# (test code = NRBC#) 0 K/uL [facility] [id number] 20:36:00* Test Item Value Reference Range Interpretation Comme nts blood glucose monitoring (te st code = blood glucose monitoring) 152 mg/dL 70.0-110 H [facility] creatinine [id number] 16:52:00* Test Item Value Reference Range Interpretation Comme nts mass creatinine kinase-mb (t est code = mass creatinine kinase-mb) 1.2 NG/mL 0.0-3.6 [facility] [id number] 16:52:00* Test Item Value Reference Range Interpretation Comme nts troponin T high sens (test c ode = troponin T high sens) 26.4 NG/L 0.0-22.0 [facility] [id number] 16:52:00* Test Item Value Reference Range Interpretation Comme nts mass creatinine kinase-mb (t est code = mass creatinine kinase-mb) 1.2 NG/mL 0.0-3.6 [facility] [id number] 16:52:00* Test Item Value Reference Range Interpretation Comme nts troponin T high sens (test c ode = troponin T high sens) 26.4 NG/L 0.0-22.0 [facility]Creat[facility] kinase [Enzymatic activity/volume] in Serum or [id number] 16:50:00* Test Item Value Reference Range Interpretation Comme nts creatine kinase (test code = creatine kinase) 56 U/L 20-200 [facility] [id number] 16:34:00* Test Item Value Reference Range Interpretation Comme [facility] blood glucose monitoring (te st code = blood glucose monitoring) 172 mg/dL 70.0-110 [facility] [id number] 14:39:00Covid-19 [facility] [id number] 11:10:00* Test Item Value Reference Range Interpretation Comme [facility] blood glucose monitoring (te st code = blood glucose monitoring) 181 mg/dL 70.0-110 [facility] [id number] 08:32:00* Test Item Value Reference Range Interpretation Comme [facility] blood glucose monitoring (te st code = blood glucose monitoring) 109 mg/dL 70.0-110 [facility] metabolic [id number] 05:01:00* Test Item Value Reference Range Interpretation Comme [facility] glucose (test code = glucose) 116 [...] = c alcium level) 9.6 mg/dL 8.8-10.2 [facility] metabolic [id number] 05:01:00* Test Item Value Reference Range Interpretation Comme [facility] glucose (test code = glucose) 116 [...] code = calcium level) 9.6 mg/dL 8.8-10.2 [facility] W Auto Differential panel - [id number] 04:30:00 * Test Item Value Reference Range [...] NRBC# (test code = NRBC#) 0 K/uL [facility] [id number] 01:18:00* Test Item Value Reference Range Interpretation Comme [facility] blood glucose monitoring (te st code = blood glucose monitoring) 221 mg/dL 70.0-110 [facility] [id number] 19:55:00* Test Item Value Reference Range Interpretation Comme nts blood glucose monitoring (te st code = blood glucose monitoring) 152 mg/dL 70.0-110 [facility] [id number] 16:57:00* Test Item Value Reference Range Interpretation Comme nts blood glucose monitoring (te st code = blood glucose monitoring) 226 mg/dL 70.0-110 [facility] [id number] 16:30:00* Test Item Value Reference Range Interpretation Comme nts mass creatinine kinase-mb (t est code = mass creatinine kinase-mb) 1.4 NG/mL 0.0-3.6 [facility] [id number] 16:30:00* Test Item Value Reference Range Interpretation Comme nts troponin T high sens (test c ode = troponin T high sens) 22.4 NG/L 0.0-22.0 [facility]Creat[facility] kinase [Enzymatic activity/volume] in Serum or [id number] 16:29:00* Test Item Value Reference Range Interpretation Comme [facility] creatine kinase (test code = creatine kinase) 55 U/L 20-200 [facility] [id number] 10:54:00* Test Item Value Reference Range Interpretation Comme [facility] blood glucose monitoring (te st code = blood glucose monitoring) 200 mg/dL 70.0-110 [facility] [id number] 07:14:00* Test Item Value Reference Range Interpretation Comme [facility] blood glucose monitoring (te st code = blood glucose monitoring) 131 mg/dL 70.0-110 [facility] [id number] 04:09:00* Test Item Value Reference Range Interpretation [...] code = calcium level) 9.6 mg/dL 8.8-10.2 [facility] W Auto Differential panel - [id number] 03:43:00 * Test Item Value Reference Range [...] NRBC# (test code = NRBC#) 0 K/uL [facility] [id number] 19:11:00* Test Item Value Reference Range Interpretation Comme nts blood glucose monitoring (te st code = blood glucose monitoring) 153 mg/dL 70.0-110 [facility] [id number] 16:45:00* Test Item Value Reference Range Interpretation Comme nts mass creatinine kinase-mb (t est code = mass creatinine kinase-mb) 1.5 NG/mL 0.0-3.6 [facility] [id number] 16:45:00* Test Item Value Reference Range Interpretation Comme nts troponin T high sens (test c ode = troponin T high sens) 22.1 NG/L 0.0-22.0 H [facility] creatinine [id number] 16:45:00* Test Item Value Reference Range Interpretation Comme nts mass creatinine kinase-mb (t est code = mass creatinine kinase-mb) 1.5 NG/mL 0.0-3.6 [facility] [id number] 16:45:00* Test Item Value Reference Range Interpretation Comme nts troponin T high sens (test c ode = troponin T high sens) 22.1 NG/L 0.0-22.0 [facility]Creat[facility] kinase [Enzymatic activity/volume] in Serum or [id number] 16:43:00* Test Item Value Reference Range Interpretation Comme nts creatine kinase (test code = creatine kinase) 39 U/L 20-200 [facility] [id number] 16:36:00* Test Item Value Reference Range Interpretation Comme nts Hemoglobin A1c/Hemoglobin.to alexei in Blood (test code = 4548-4) 7.8 % 4.0-6.0 [facility] high [id number] 14:13:00* Test Item Value Reference Range Interpretation Comme nts troponin T high sens (test c ode = troponin T high sens) 22.5 NG/L 0.0-22.0 [facility] pro natriuretic [id number] 12:07:00* Test Item Value Reference Range Interpretation Comme nts N-term pro natriuretic pepti de (test code = N-term pro natriuretic peptide) 246 pg/mL 0-125 H [facility] creatinine [id number] 12:06:00* Test Item Value Reference Range Interpretation Comme nts mass creatinine kinase-mb (t est code = mass creatinine kinase-mb) 1.6 NG/mL 0.0-3.6 [facility] [id number] 12:06:00* Test Item Value Reference Range Interpretation Comme nts troponin T high sens (test c ode = troponin T high sens) 25.1 NG/L 0.0-22.0 H [facility] creatinine [id number] 12:06:00* Test Item Value Reference Range Interpretation Comme nts mass creatinine kinase-mb (t est code = mass creatinine kinase-mb) 1.6 NG/mL 0.0-3.6 [facility] T high [id number] 12:06:00* Test Item Value Reference Range Interpretation Comme nts troponin T high sens (test c ode = troponin T high sens) 25.1 NG/L 0.0-22.0 [facility]Com[facility] 2000 [facility] - Serum or Plasma [...] alkaline phosphatase, total) 140 U/L 40-130 [facility]Creat[facility] kinase [Enzymatic activity/volume] in Serum or [id number] 12:02:00* Test Item Value Reference Range Interpretation Comme [facility] creatine kinase (test code = creatine kinase) 44 U/L 20-200 [facility]PT/[id number] 11:45:00* Test Item Value Reference Range Interpretation Comme nts prothrombin time (test code = prothrombin time) 11.1 seconds 10.3-12.3 INR (test code = INR) 0.98 [facility] [id number] 11:45:00* Test Item Value Reference Range Interpretation Comme nts partial thromboplastin time (test code = partial thromboplastin time) 29.4 seconds 22.5-37.0 [facility] W Auto Differential panel - [id number] 11:16:00 * Test Item Value Reference Range [...] NRBC# (test code = NRBC#) 0 K/uL [facility]D-[id number] 18:53:00* Test Item Value Reference Range Interpretation Comme nts D-dimer (test code = D-dimer) 1250 NG/mL <500 [facility]Com[facility] 2000 [facility] - Serum or Plasma 2023-09-24 18:52:00* Test Item Value Reference Range Interpretation Comme nts glucose (test code = glucose) 393 mg/dL [...] = alkaline phosphatase, total) 127 U/L 40-130 [facility] pro natriuretic [id number] 18:37:00* Test Item Value Reference Range Interpretation Comme nts N-term pro natriuretic pepti de (test code = N-term pro natriuretic peptide) 905 pg/mL 0-125 [facility] high [id number] 18:35:00* Test Item Value Reference Range Interpretation Comme nts troponin T high sens (test c ode = troponin T high sens) 19.9 NG/L 0.0-22.0 [facility]CBC [facility] Differential [facility] - [id number] 18:15:00 * Test Item Value Reference Range [...] NRBC# (test code = NRBC#) 0 K/uL [facility] metabolic [id number] 13:48:00* Test Item Value Reference Range Interpretation [...] code = calcium level) 9.3 mg/dL 8.8-10.2 [facility] W Auto Differential panel - [id number] 13:22:00 * Test Item Value Reference Range [...] NRBC# (test code = NRBC#) 0 K/uL [facility]althyroid stimulating hormone [id number] 11:51:00* Test Item Value Reference Range Interpretation Comme nts thyroid stimulating hormone L (test code = thyroid stimulating hormone L) 2.48 uIU/mL 0.36-3.74 [facility]althy[facility] stimulating hormone [id number] 11:51:00* Test Item Value Reference Range Interpretation Comme nts thyroid stimulating hormone L (test code = thyroid stimulating hormone L) 2.48 uIU/mL 0.36-3.74 [facility]althy[facility] stimulating hormone [id number] 11:51:00* Test Item Value Reference Range Interpretation Comme nts thyroid stimulating hormone L (test code = thyroid stimulating hormone L) 2.48 uIU/mL 0.36-3.74 [facility]hem[facility] [id number] 11:42:00* Test Item Value Reference Range Interpretation Comme nts Hemoglobin A1c/Hemoglobin.to alexei in Blood (test code = 4548-4) 7.6 % 4.0-6.0 [facility] [id number] 11:42:00* Test Item Value Reference Range Interpretation Comme [facility] Hemoglobin A1c/Hemoglobin.to alexei in Blood (test code = 4548-4) 7.6 % 4.0-6.0 [facility] [id number] 11:42:00* Test Item Value Reference Range Interpretation Comme [facility] Hemoglobin A1c/Hemoglobin.to alexei in Blood (test code = 4548-4) 7.6 % 4.0-6.0 [facility]Com[facility] 2000 [facility] - Serum or Plasma [...] = alkaline phosphatase, total) 101 U/L 40-130 [facility]allipid [id number] 11:39:00* Test Item Value Reference Range Interpretation [...] (test code = cholesterol risk ratio) 4.555 [facility]all[facility] [id number] 11:39:00* Test Item Value Reference Range Interpretation [...] (test code = cholesterol risk ratio) 4.555 [facility]Com[facility] 2000 [facility] - Serum or Plasma [...] = alkaline phosphatase, total) 101 U/L 40-130 [facility]all[facility] [id number] 11:39:00* Test Item Value Reference Range Interpretation [...] (test code = cholesterol risk ratio) 4.555 [facility] [id number] 11:39:00* Test Item Value Reference Range Interpretation [...] (test code = cholesterol risk ratio) 4.555 [facility]Com[facility] 2000 [facility] - Serum or Plasma [...] = alkaline phosphatase, total) 101 U/L 40-130 [facility] [id number] 11:39:00* Test Item Value Reference Range Interpretation [...] (test code = cholesterol risk ratio) 4.555 [facility] [id number] 11:39:00* Test Item Value Reference Range Interpretation [...] (test code = cholesterol risk ratio) 4.555 [facility] HospitalHiyrklnjvnqhwqc7608-21-97 11:34:00* Test Item Value Reference Range Interpretation [...] = amorphous sediment, urine) large none seen [facility] HospitalSyaytdksateponh3545-86-13 11:34:00* Test Item Value Reference Range Interpretation [...] = amorphous sediment, urine) large none seen [facility] HospitalPpzjizmctnlcrfd3547-07-52 11:34:00* Test Item Value Reference Range Interpretation [...] = amorphous sediment, urine) large none seen [facility] HospitalMicroalbumin [Mass/volume] in [id number] 11:27:00* Test Item Value Reference Range Interpretation Comme nts microalbumin random (test co de = microalbumin random) 136.5 mg/L 0-20 [facility]Microalbumin [Mass/volume] in [id number] 11:27:00* Test Item Value Reference Range Interpretation Comme nts microalbumin random (test co de = microalbumin random) 136.5 mg/L 0-20 [facility]Microalbumin [Mass/volume] in [id number] 11:27:00* Test Item Value Reference Range Interpretation Comme nts microalbumin random (test co de = microalbumin random) 136.5 mg/L 0-[address] [facility] W Auto Differential panel - [id number] 11:16:00 * Test Item Value Reference Range [...] NRBC# (test code = NRBC#) 0 K/uL [facility] W Auto Differential panel - [id number] 11:16:00 * Test Item Value Reference Range [...] NRBC# (test code = NRBC#) 0 K/uL [facility] W Auto Differential panel - [id number] 11:16:00 * Test Item Value Reference Range [...] NRBC# (test code = NRBC#) 0 K/uL [facility]CT [facility]/O CONTRAST *WW*2023-04-12 13:52:58 [facility]Name[facility] : 1950 Sex: MExam: CT [...]
[2024-03-17] MEDS ORDERED: methocarbamoL 750 MG TAB PO PRN (18:57)
[2024-03-17] MEDS ORDERED: HYDRALAZINE HCL 25 MG TABLET PO PRN ×2 (18:57→21:23)
[2024-03-17] MEDS ORDERED: INSULIN REGULAR (HUMAN) 100 UNIT/ML ONE (20:09)
[2024-03-17] MEDS: POTASSIUM CL SA 10 MEQ TAB PO SCH (20:33)
[2024-03-17] MEDS: LOSARTAN POTASSIUM 50 MG TABLET PO SCH (20:33)
[2024-03-17] MEDS: AMOX/K CLAV 875 MG TAB PO SCH (20:33)
[2024-03-17] MEDS: INSULIN REGULAR (HUMAN) 100 UNIT/ML SQ SCH (20:33)
[2024-03-17] MEDS: ATORVASTATIN 80 MG TAB PO SCH (20:33)
[2024-03-17] MEDS: TRAZODONE 50 MG TABLET PO SCH (20:33)
[2024-03-17] MEDS: VENLAFAXINE HCL 75 MG TABLET PO SCH (20:34)
[2024-03-18 00:08] LABS: Specific Gravity 1.017 (1.005-1.030); Sqamous Epithelial None Seen /HPF (None Seen); Urine Bacteria None Seen /HPF (<20); Urine Bilirubin NEGATIVE (Negative); Urine Blood Negative (Negative); Urine Clarity Clear (Clear); Urine Color Colorless (Yellow); Urine Culture Reflex Order NOT NEEDED; Urine Glucose 4+ (Over) (Negative); Urine Ketones NEGATIVE (Negative); Urine Micro Reflex YN NO BILL MICROSCOPIC; Urine Mucus Slight /HPF (None Seen); Urine Nitrite NEGATIVE (Negative); Urine Protein TRACE (Negative); Urine RBC None Seen /HPF (None Seen); Urine Urobilinogen Normal (Normal); Urine WBC <5 /HPF (<5); Urine pH 5.5 (5.0-7.0)
[2024-03-18 02:39] VITALS: BMI 30.4
[2024-03-18 07:57] LABS: Absolute Eosinophils 0.2 K/uL (0-0.5); Absolute Lymphocytes (CBC) 1.5 K/uL (0.7-4.9); Absolute Monocytes 0.8 K/uL (0.1-1.3); Absolute Neutrophil 5.6 K/uL (1.8-8.0); Basophils % 0.5 % (0-1.3); Hematocrit 36.7 % (39.6-49.0); Hemoglobin 11.5 g/dL (13.6-17.9); Lymphocytes % 18.7 % (15.3-44.8); MCH 25.6 pg (27.0-35.0); MCHC 31.4 g/dL (32.0-36.0); MCV 81.5 fL (80-100); MPV 10.4 fL (7.6-11.3); Monocytes % 9.9 % (3.3-12.3); Neutrophils % 68.9 % (41.7-73.7); Nucleated Red Blood Cells % 0.5 % (0-0); Platelets 209 thou/uL (152-406); Red Cell Distribution Width 18.2 % (12.1-15.2)
[2024-03-18 08:13] LABS: Albumin 3.5 g/dL (3.4-5.0); Anion Gap 7.2 mEq/L (5.0-15.0); Magnesium 2.1 mg/dL (1.6-2.4); Potassium 4.2 mEq/L (3.5-5.1); Prealbumin 25.2 mg/dL (20-40)
[2024-03-18] MEDS: DOCUSATE NA/SENNA CONC 1 TAB PO SCH (09:29)
[2024-03-18] MEDS: VITAMIN D 1000 UNIT TAB PO SCH (09:29)
[2024-03-18] MEDS: NYSTATIN PWDR 100000 UNIT/GM TOP SCH (09:30)
[2024-03-18] MEDS: CHLORTHALIDONE 25 MG TAB PO SCH (09:31)
[2024-03-18] MEDS: carvediloL 25 MG TAB PO SCH (09:32)
[2024-03-18] MEDS: TAMSULOSIN 0.4 MG SR CAP PO SCH (09:32)
[2024-03-18] MEDS: MULTIVITAMIN TAB PO SCH (09:33)
[2024-03-18] MEDS: FOLIC ACID 1 MG TABLET PO SCH (09:33)
[2024-03-18] MEDS: FUROSEMIDE 40 MG TABLET PO SCH (09:33)
[2024-03-18] MEDS: APIXABAN 2.5 MG TABLET PO SCH (11:42)
[2024-03-18] MEDS: LIDOCAINE 4% PATCH TOP SCH ×2 (14:00→15:23)
[2024-03-18] MEDS ORDERED: LIDOCAINE 4% PATCH ONE (15:21)
[2024-03-18] MEDS: glipiZIDE 5 MG TAB PO SCH (17:13)
[2024-03-18] MEDS: NA CHLORIDE 0.9% 1,000 ML IV SCH (19:00)
[2024-03-18] MEDS: MAGNESIUM OXIDE 400 MG TAB PO SCH (20:11)
--- NOTE | 2024-03-19 05:49 | HP ---
Date of Admission: 03/17/2024 Time Of Service: 1 p.m. Chief Complaint: "I have knee pain." History Of Present Illness: Mr. Lira is a 74-year-old patient with hypertension, arthritis, ankylosi ng spondylitis, central nervous system bleed in 2022, multiple strokes with some residual left-sided weakness, who had increasing arthritic pain from his ankylosing spondylitis and his hips and knees. As a result, he had become increasingly weak and had fallen 4 times in 4 days. He is only receiving Tylenol for pain. He was not seen by a sharepoint architect for at least 2 years after he moved to [place]. He is able to use a walker in the morning and wheelchair later in the afternoon due to pain. Linda figueroa, in his home, the wheelchair was wider than the doorways and resulting in him trying to transfer wi thout assistive device and having multiple falls. He lives with his who does all the housework and assists him with activities of daily living and has a 26-hour per week caregiver. However, he di d fall and after falling, he was taken to [facility] via emergency services af ter his was unable to get him up from the floor and they were called. Workup did reveal a rhett l complete blood count with differential and imaging showed no fractures. He did have CT scan of the abdomen showing gallstones and absent right kidney and stable findings in both adrenal glands. He h ad chronic diverticulosis without diverticulitis and the ankylosing spondylitis in the thoracic and l umbar spine. CT scan also identified an area of pneumonia and he was treated with IV antibiotics. D ue to the pain in his hip and legs from this ankylosing spondylitis, he is now requiring maximal assi stance for bed mobilization, moderate assistance for transfers and for ambulation just 3 feet with a rolling walker. On room air, his oxygen saturation is 90% to 95%, but this decreased to 80% with mob ilization and therapy. He does require O2 supplementation. There is recommendation for oxygen riana nued at home. However, he currently is admitted to the now inpatient rehabilitation given his comorb id condition state of physical functioning. He does require aggressive management of those comorbid conditions, treatment of his urinary tract infection continued, and to help him reduce risk of rehosp italization and of course for additional falls. Admission to a lower level facility would likely not result in him improving. Past Medical History: As noted above. Allergies: CODEINE AND IODINE. Medications: Tylenol 650 mg every 4 hours as needed, Augmentin 875/125 twice daily, Eliquis 2.5 mg t wice daily, Lipitor 80 mg at bedtime, Coreg 25 mg twice daily, vitamin D 5000 units daily, ferrous colin lfate 325 mg daily, folic acid 1 mg daily, Lasix 40 mg daily, glipizide 5 mg twice daily, lidocaine p atch apply 1 patch to the right knee where he has pain daily, Cozaar 50 mg twice daily, magnesium oxi de 400 mg twice daily, Robaxin 750 mg 3 times daily, Centrum Silver 1 tablet daily, Mycostatin powder apply 1 application topically twice daily, Zofran 4 mg every 6 hours, potassium 10 mEq twice daily, Senokot-S 2 at bedtime, he is receiving some IV fluids at 75 cc an hour for his hydration level being dehydrated, Flomax 0.4 mg daily, Ultram 50 mg every 6 hours as needed, Desyrel 100 mg at bedtime, an d Effexor 75 mg daily. Review of Systems: Reported pain in the knees and hips, but the right knee is most painful around 7 to 8 when ambulating and pain patch in place. Otherwise, he denies any fevers or chills. Says there is mild myalgias ac ross the top of the right knee and again the arthralgias. No rash. No headache. Denies any signifi cant psychiatric complaints, had a bowel movement recently, and is producing urine. No other systemi c complaints. Family History: Noncontributory. Social History: Lives with family. No alcohol, intravenous drugs, or illegal drug use. Current Level Of Functioning: Currently, supervision for eating, oral hygiene is dependent for toile ting, showering. Upper body dressing, maximal assistance. Lower body dressing, dependent. Donning and doffing footwear, dependent. Rolling from [id number] and sit to lying and lying to sitting ma ximum assistance needed. For ald-ih-htdvo and transfer from chair to [id number], moderate assistan ce. Toilet transfers, maximum assistance. Ambulation, moderate assistance with a rolling walker cov ering 3 feet. Physical Examination: Vital Signs: Blood pressure 164/76, pulse 95, respiratory rate of 16, temperature 97.4, and oxygen s aturation 91%. Weight 200 pounds, height 5 feet 8 inches, BMI 30.4. General: Mr. Lira is sitting in a chair in between therapy sessions. HEENT: He appears normocephalic, atraumatic. Sclerae anicteric. Oropharynx pink and moist. Neck: Supple. Chest: Clear. Extremities: No significant edema in the lower extremities. No swelling noted in the knee on palpat ion. There is no significant pain except mild or very top slightly to medial aspect of the right pro ximal knee region. Otherwise, no other abnormalities on his examination. He does have some unsteady gait with fatigue. Laboratory Studies: White blood cell count 8.1, hemoglobin 11.5, platelets 209. Sodium 139, potassi um 4.2, chloride 105, carbon dioxide 31, BUN 26, creatinine 1.46, glucose 138, ranging up to 247. He moglobin A1c 6.8, calcium 9.1, magnesium 2.1, albumin 3.5. Prealbumin 25.2. Urinalysis is 4+ glucos e, trace protein, otherwise normal. X-rays/imaging: Reviewed. Rehabilitation And Medical Assessment And Plan: Mr. Lira is admitted to inpatient rehabilitation [facility] with an impairment category 09, orthopedic. His impairment group code is 08.9, other orthopedic. Etiologic diagnosis, ankylosing spondylitis. His comorbidities are anemia, arthritis, decreased mobi lity, decreased physical functioning, diabetic neuropathy, diabetes mellitus, dysphagia and dyspnea o n exertion, hypertension, left-sided weakness that is very subtle, recurrent falls, single kidney and elevated creatinine and BUN. Plan: 1.He will have physical and occupational therapy for 3 hours a day, 5 of 7 days. 2.His multiple comorbid conditions have been outlined and managed by continuing his list of medicati ons including Lipitor for dyslipidemia, Eliquis for DVT prophylaxis, amoxacillin for his urinary trac t infection, Tylenol for pain, vitamin D for low vitamin D level, furosemide for fluid management, gl ipizide for his diabetes mellitus, Cozaar for hypertension. He has the methocarbamol, magnesium, and patch for the pain above the right knee and as needed in the hip region as well, Effexor for mood co ntrol, Desyrel for insomnia, Flomax for prostate hypertrophy. He does have some fluid going, sodium chloride 75 mg for his mild dehydration. Comorbidities That Are Impacting Rehabilitation: His urinary tract infection is treated with multipl e antibiotics. He has to be carefully observed for developing secondary infections in the GI tract s uch as C. diff. He has of course high risk of falls and having multiple falls recently and will have a gait belt. If need be, a chair alarm and a rolling walker at all times as he mobilizes. His othe r comorbidities will be carefully evaluated and followed on a daily basis. Rehab Specific Plan: Mr. Lira will have physical and occupational therapy for 3 hours a day, 5 of 7 days to improve his ability to transfer from bed to chair to toilet to shower and to perform toiletin g and showering. Also to be able to mobilize 250 feet with a rolling walker and independence and for him to mobilize a wheelchair 250 feet with independence and go up and down 10 steps with independenc e. In addition, cognitive functioning, we expect to be performed with independence and if need be, s peech therapy will be involved. He will have 24 hours a day, 7 days a week skilled rehabilitation and nursing for evaluating his curr ent and ongoing need for adjustment of medications, for temperature, following vital signs for his ri sk of developing worsening infection in the urinary tract, in the lung, or cellulitis. He will have daily physician evaluation and management for integrating his medical management and therapy. He cindy l have social work coordinator evaluation and management for discharge planning, home equipment, and to riana nue his therapy as appropriate either outpatient or on a home health basis. Given his complex medical condition and risk of further complications, rehabilitation cannot be safel y or effectively performed at a lower level facility such as [facility]. If need be, have addit ional help from the Hospitalist Service and Infectious Disease Service will be consulted. Barriers To Discharge: Mr. Lira was at home with his , who was assisting him, he has had multipl e falls, he has ankylosing spondylitis which may make it difficult for him to return home and be inde pendent. However, if need be, he may go to [facility], however, the plan or goal will be for hi m to go home. Length Of Stay: About 12 days. Disposition: Home with family, continuing therapy potentially by Home Health. Prognosis: Good. Rehab Specific Goals: 1.Become independent with upper and lower body dressing and donning and doffing footwear. 2.Independently transfer into the toilet and to the shower and perform toileting and showering. 3.Independently ambulate 250 feet with a rolling walker. 4.Independently propel a wheelchair 250 feet. 5.Independently go up and down 10 steps with bilateral handrails. 6.Independently perform all cognitive functioning. The above goals were discussed with Mr. Lira and he is in agreement. By signing this document, I acknowledge I personally performed a full physical examination on Mr. Thien bill no later than 24 hours after his admission to the inpatient rehabilitation facility and determined that he is able to tolerate the above course of treatment at an intensive level for a reasonable mari od of time. A detailed individualized plan of care for him will be completed by hospital day 4 based on the preadmission screen, history and physical, and therapy evaluations. EMILIE Voice ID: [id number]
[2024-03-19] MEDS: FERROUS SULFATE 325 MG TAB PO SCH (08:35)
[2024-03-19] MEDS: ONDANSETRON 4 MG (ODT) TAB PO PRN (11:41)
[2024-03-19] MEDS: carvediloL 25 MG TAB PO SCH (17:34)
--- NOTE | 2024-03-20 00:59 | PN ---
Date of Progress Note: 03/19/2024 Time Of Service: 1:35 p.m. Subjective: Mr. Lira is doing well. He has no significant complaints except some pain in the hips a nd in the medial right knee, where his pain patch was on until he did shower and now is off, but the new pain patch will be placed. Objective: Again, mild arthralgias and myalgias, most notably in the right anterior and medial knee on the right side, otherwise negative for fevers, chills, nausea, vomiting, rash. Physical Examination: Vital Signs: Blood pressure 107/63, pulse 95, respiratory rate 18, temperature 97.7, oxygen saturati on 96%. General: Mr. Lira is in between therapy sessions. He is actually just sitting down in bed. HEENT: He is normocephalic, atraumatic. Sclerae anicteric. Oropharynx pink and moist. Neck: Supple. Chest: Clear. Extremities: Does have some swelling in the joints and some tenderness to palpation of the right kne e, but there is no effusion in the knee. Laboratory Studies: White blood cell count 8.1, hemoglobin 11.5, platelets 209. Sodium 139, potassi um 4.2, chloride 105, carbon dioxide 31, BUN 26, creatinine 1.46, glucose ranged from 65 to 174. X-ray/imaging: No new x-rays or imaging. Medications: Tylenol 650 mg every 4 hours as needed, he is on Augmentin 875/125 twice daily from to 03/27, Eliquis 2.5 mg twice daily, Lipitor 80 mg at bedtime, Coreg 25 mg twice daily, vitamin D 5000 units daily, he is also on hygroton 25 mg daily, ferrous sulfate 325 mg daily, folic acid 1 mg daily, Lasix 40 mg daily, he has Glucotrol 5 mg twice daily, Apresoline 25 mg every 8 hours, insulin sliding scale, Cozaar 50 mg twice daily, magnesium oxide 400 mg twice daily, Robaxin 750 mg 3 times d aily, Centrum tablet 1 daily, Mycostatin applied topically twice daily as needed, Zofran 4 mg every 6 hours as needed, potassium 10 mEq twice daily, Senokot-S 2 twice daily, Flomax 0.4 mg daily, tramado l 50 mg every 6 hours as needed, Desyrel 100 mg at bedtime, Effexor 75 mg twice daily. Progress Made With Physical, Occupational, And Speech Therapy: With physical therapy today, ambulate d 100 feet, 150 feet, 75 feet with contact guard assistance using a rolling walker. He was able to g o up and down 10 steps with bilateral handrails with contact guard assistance. With occupational the rapy, supervision for bathing and verbal cues required, minimum assist for upper body dressing, donni ng shirt over his head and down the back, supervision for lower body dressing. The patient did menti on his did assist him with getting dressed, but he typically can do on his own while at home. W ith his speech therapy, recalled 4/4 unrelated pictures at 4 minutes, did utilize memory strategies i ndependently. Divergent naming, average of 8 items per concrete category was done before any cuing w as required. Mr. Lira is doing very well with his physical, occupational, and speech therapy. Assessment And Plan: Mr. Lira is a 74-year-old patient in the rehabilitation unit with ankylosing sp ondylitis. He has arthritis affecting multiple joints and right now pain most in the right knee. He has decreased mobility, decreased physical functioning, diabetes mellitus, diabetic neuropathy, dysp hagia, hypertension, recurrent falls, a single kidney. Plan: 1.Continue with physical, occupational, and speech therapy for 3.5 hours, 5 of 7 days. 2.His comorbid medications have been listed and comorbid conditions also listed. Glipizide used for diabetes mellitus, Cozaar for hypertension, methocarbamol and magnesium for muscle spasms, again blaise n patch to the right knee, Effexor for mood stabilization, Desyrel for insomnia, Flomax for prostate hypertrophy, he does have sodium chloride replacement, and he did have IV sodium chloride, he receive d 75 mL an hour, 1 L. Comorbidities That Are Impacting Rehabilitation: His joint pain is his biggest limiting factor and p ain patch and multiple modalities as noted have been addressed. LB/MODL Voice ID: [id number] Report ID: [id number]
[2024-03-20 08:13] LABS: Absolute Eosinophils 0.2 K/uL (0-0.5); Absolute Monocytes 1.4 K/uL (0.1-1.3); Absolute Neutrophil 4.6 K/uL (1.8-8.0); Basophils % 0.5 % (0-1.3); Eosinophils % 2.2 % (0-4.4); Hematocrit 36.6 % (39.6-49.0); Hemoglobin 11.7 g/dL (13.6-17.9); Lymphocytes % 24.1 % (15.3-44.8); MCH 25.6 pg (27.0-35.0); MCHC 31.9 g/dL (32.0-36.0); MCV 80.3 fL (80-100); MPV 10.4 fL (7.6-11.3); Monocytes % 16.8 % (3.3-12.3); Neutrophils % 56.4 % (41.7-73.7); Platelets 196 thou/uL (152-406); RBC Red Blood Cell Count 4.55 M/uL (4.33-5.43); Red Cell Distribution Width 18.2 % (12.1-15.2)
[2024-03-20 08:54] LABS: Anion Gap 6.9 mEq/L (5.0-15.0); Potassium 2.9 mEq/L (3.5-5.1)
[2024-03-21] MEDS: VITAMIN D 5,000 UNIT CAP PO SCH (08:49)
[2024-03-21] MEDS: POTASSIUM CL SA 10 MEQ TAB PO SCH (08:50)
[2024-03-21] MEDS: POTASSIUM 25 MEQ EFFERV TAB PO ONE (08:50)
[2024-03-21] MEDS: carvediloL 12.5 MG TAB PO SCH (11:25)
--- NOTE | 2024-03-21 13:56 | P.RH.PN ---
Estimated Length of Stay: 13 Expected Discharge Date: 04/02/24 Discharge Disposition Plan: Home Family Support: Yes Intermediate Goal: Mobility, Transfers, Self Care Vital Signs: Last Vital Signs Temp 96.8 F 03/21/24 07:24 Pulse 88 03/21/24 11:25 Resp 18 03/21/24 07:24 BP 145/88 H 03/21/24 11:25 Pulse Ox 92 03/21/24 07:24 Laboratory: Laboratory Last Values WBC 8.20 thou/uL (4.3-10.9) 03/20/24 07:37 RBC 4.55 M/uL (4.33-5.43) 03/20/24 07:37 Hgb 11.7 g/dL (13.6-17.9) L 03/20/24 07:37 Hct 36.6 % (39.6-49.0) L 03/20/24 07:37 MCV 80.3 fL (80-100) 03/20/24 07:37 MCH 25.6 pg (27.0-35.0) L 03/20/24 07:37 MCHC 31.9 g/dL (32.0-36.0) L 03/20/24 07:37 RDW 18.2 % (12.1-15.2) H 03/20/24 07:37 Plt Count 196 thou/uL (152-406) 03/20/24 07:37 MPV 10.4 fL (7.6-11.3) 03/20/24 07:37 Neutrophils % 56.4 % (41.7-73.7) 03/20/24 07:37 Lymphocytes % 24.1 % (15.3-44.8) 03/20/24 07:37 Monocytes % 16.8 % (3.3-12.3) H 03/20/24 07:37 Eosinophils % 2.2 % (0-4.4) 03/20/24 07:37 Basophils % 0.5 % (0-1.3) 03/20/24 07:37 Absolute Neutrophils 4.6 K/uL (1.8-8.0) 03/20/24 07:37 Absolute Lymphocytes 2.0 K/uL (0.7-4.9) 03/20/24 07:37 Absolute Monocytes 1.4 K/uL (0.1-1.3) H 03/20/24 07:37 Absolute Eosinophils 0.2 K/uL (0-0.5) 03/20/24 07:37 Absolute Basophils 0.0 K/uL (0-0.5) 03/20/24 07:37 Sodium 138 mEq/L (136-145) 03/20/24 07:37 Potassium 2.9 mEq/L (3.5-5.1) L 03/20/24 07:37 Chloride 100 mEq/L (98-107) 03/20/24 07:37 Carbon Dioxide 34 mEq/L (21-32) H 03/20/24 07:37 Anion Gap 6.9 mEq/L (5.0-15.0) 03/20/24 07:37 BUN 32 mg/dL (7-18) H 03/20/24 07:37 Creatinine 1.67 mg/dL (0.70-1.30) H 03/20/24 07:37 Est GFR (CKD-EPI) 43 ml/min (=/>90) L 03/20/24 07:37 Glucose 91 mg/dL (74-106) 03/20/24 07:37 POC Glucose 166 mg/dL (65-120) H 03/21/24 11:43 Hemoglobin A1c 6.8 % (4.2-6.3) H 03/18/24 07:16 Calcium 9.7 mg/dL (8.5-10.1) 03/20/24 07:37 Magnesium 2.1 mg/dL (1.6-2.4) 03/18/24 07:16 Albumin 3.5 g/dL (3.4-5.0) 03/18/24 07:16 Prealbumin 25.2 mg/dL (20-40) 03/18/24 07:16 Urine Color Colorless (Yellow) 03/17/24 23:45 Urine Clarity Clear (Clear) 03/17/24 23:45 Urine pH 5.5 (5.0-7.0) 03/17/24 23:45 Ur Specific [place] 1.017 (1.005-1.030) 03/17/24 23:45 Glucose (UA)(Auto) 4+ (over) (Negative) H 03/17/24 23:45 Urine Ketones Negative (Negative) 03/17/24 23:45 Urine Blood Negative (Negative) 03/17/24 23:45 Urine Nitrite Negative (Negative) 03/17/24 23:45 Urine Bilirubin Negative (Negative) 03/17/24 23:45 Urine Urobilinogen Normal (Normal) 03/17/24 23:45 Ur Leukocyte Esterase Negative Nandini/uL (Negative) 03/17/24 23:45 Urine RBC None seen /HPF (None Seen) 03/17/24 23:45 Urine WBC <5 /HPF (<5) 03/17/24 23:45 Ur Squamous Epith Cells None seen /HPF (None Seen) 03/17/24 23:45 Urine Bacteria None seen /HPF (<20) 03/17/24 23:45 Urine Mucus Slight /HPF (None Seen) 03/17/24 23:45 Urine Culture Reflexed Not needed 03/17/24 23:45 Urine Total Protein Trace (Negative) H 03/17/24 23:45 Weight: 200 lb Wound Present: No Closed Surgical Incision Present: No Negative Pressure Wound Therapy Present: No Physician Update: Labs reviewed, K is low and being replaced. Pain in the left knee improved. SLUMS 25, poor short term memory. Met 4/4 long and short term goals. RW 250' x 2 with CGA with occasional loss of balance. 15 steps, poor right hand coordination and balance. Summary: Patient's care plan and assisted goals have been reviewed and revised as necessary. Please see the Rehabilitation Signature page for all necessary signatures.
[2024-03-21] MEDS: CHLORTHALIDONE 25 MG TAB PO SCH (19:31)
[2024-03-22 06:13] LABS: Magnesium 2.6 mg/dL (1.6-2.4)
[2024-03-22] MEDS: POTASSIUM 25 MEQ EFFERV TAB PO ONE (08:34)
[2024-03-22] MEDS: VENLAFAXINE HCL XR 75 MG CAP PO SCH (08:36)
[2024-03-22] MEDS: ACETAMINOPHEN 325 MG TABLET PO PRN (10:13)
[2024-03-22] MEDS ORDERED: BISACODYL 10 MG RECTAL SUPP PR PRN (18:59)
[2024-03-22] MEDS ORDERED: MAGNESIUM HYDROXIDE 8% 30 ML PO PRN (18:59)
[2024-03-24 07:18] LABS: Anion Gap 5.7 mEq/L (5.0-15.0); Magnesium 2.5 mg/dL (1.6-2.4); Potassium 2.7 mEq/L (3.5-5.1)
[2024-03-24] MEDS: POTASSIUM CL SA 10 MEQ TAB PO ONE ×2 (08:19→13:48)
[2024-03-24] MEDS: CRANBERRY FRUIT EXTRACT 200 MG CAP PO SCH (08:22)
[2024-03-24] MEDS: TRAMADOL HCL 50 MG TAB PO PRN (13:49)
[2024-03-24] MEDS ORDERED: POTASSIUM CL SA 10 MEQ TAB PO ONE (14:00)
--- NOTE | 2024-03-25 00:56 | PN ---
Date of Progress Note: 03/24/2024 Time: 1:25 p.m. Subjective: Mr. Lira is in his wheelchair in the hallway doing much better today. He said his pain in the left medial knee is managed with a pain patch. He is able to do all the therapy without any s ignificant difficulty. Objective: He denies any fevers, chills. Has mild myalgias, arthralgias. No rash, headache, weight change. Physical Examination: Vital Signs: Blood pressure 159/84, pulse 79, respiratory rate 16, temperature 97.4, and oxygen satu ration 95%. General: Mr. Lira is resting in a chair, again in no significant distress. HEENT: He appears normocephalic, atraumatic. Sclerae anicteric. Oropharynx pink and moist. Extremities: He has no swelling in the knees, but there is some pain to palpation in the left medial knee. Otherwise, no other findings on examination. Laboratory Studies: Blood sugars ranged from 73 to 126. Potassium improved from 2.7 with replacemen t to 3.9 today. Magnesium was 2.5. X-ray/imaging: No new x-ray or imaging. Medications: Due to hypokalemia, he did receive potassium 40 mEq and now has 20 twice daily, magnesi um oxide on board, Apresoline, glipizide, Lasix, Lipitor, Augmentin also on board from 03/17 to 03/27 . Progress Made With Physical, Occupational, And Speech Therapy: Today with physical therapy, ambulate d 500 feet with a rolling walker with standby assistance. No breaks. No loss of balance. Mobilized a wheelchair 250 feet with modified independence. With occupational therapy, did 2 [id number] and table top with contact guard assistance. Did require some assistance stabilizing a paper while writ ing. With his speech, he did recall independently 1 set of 4/4 unrelated items after 3 and 5-minute delay. Mr. Lira is making great progress with physical, occupational, and speech therapy. Pain is no longer a significant limiting factor. Assessment: Mr. Lira is a 74-year-old patient in the rehabilitation unit with ankylosing spondylitis affecting the joints, making it difficult for him to mobilize, but he is overcoming that and doing e xcellent. He has comorbid of depression, prostate hypertrophy. He has areas of skin breakdown in th e buttocks region that Wound Care is assisting with and there is the Mycostatin powder likely related to fungal infection. He has lidocaine patch on board in the medial knee, has Glucotrol for diabetes , ferrous sulfate for his anemia, Lipitor for dyslipidemia, Eliquis for DVT prophylaxis, and continue with Augmentin. GAYE/MEGAN Voice ID: [id number] Report ID: [id number]
--- NOTE | 2024-03-25 20:23 | PN ---
Date of Progress Note: 03/25/2024 Time: 1:30 p.m. Subjective: Mr. Lira is resting in the wheelchair in his room. He is doing very well. Says he molly newman has some pain in the back and the right knee from the arthritic-type changes in his joint. However , it does not stop him from participating very well in all therapy. Objective: Denies any fevers, chills. He has mild myalgias, arthralgias, especially in the knees an d more on the right. No other complaints on review of systems. Physical Examination: Vital Signs: Blood pressure 132/78, pulse 76, respiratory rate 18, temperature 97.6, oxygen saturati on 98%. General: Mr. Lira again is resting comfortably. He is in no acute distress. HEENT: He is normocephalic, atraumatic. He does have poor dentition. Otherwise, sclerae anicteric. Oropharynx pink and moist. Neck: Supple. Chest: Clear. Extremities: No significant edema, cyanosis, or clubbing noted. He has no focal neurologic deficits . He has diffuse weakness in upper and lower extremities. Laboratory Studies: Blood sugars ranged from 78 to 160. X-ray/imaging: No new x-rays or imaging. Medications: Medications have been reviewed and are unchanged. Progress Made With Physical, Occupational, And Speech Therapy: Today with physical therapy, he did a bicycle ergometer to improve strength and was able to complete, do a steady pace for 15 minutes. Mo bilized a wheelchair 250 feet with close to modified independence. With occupational therapy, bathin g independent, lower body dressing independent, lower body dressing and donning and doffing of footwe ar independent. With speech, he was independent with organizational thinking divided into senior care tasks. However, he needed minimal assistance for naming tasks. He recalled 1 set of 4/4 unrelated i tems after 5-minute delay. Mr. Lira is making good progress with physical, occupational, and speech therapy. Assessment: Mr. Lira is a 74-year-old patient in the rehabilitation unit with ankylosing spondylitis affecting the knees, more particularly the right knee more than others. He has comorbid of depressi on, prostate hypertrophy, constipation, hypokalemia, muscle spasms, hypertension, diabetes mellitus, anemia, and is on Augmentin for UTI. Plan: Again continue with physical, occupational, and speech therapy. He will continue with all com orbid condition medications as needed. GAYE/MEGAN Voice ID: [id number] Report ID: [id number]
[2024-03-26 06:41] LABS: Absolute Eosinophils 0.2 K/uL (0-0.5); Absolute Lymphocytes (CBC) 1.9 K/uL (0.7-4.9); Absolute Monocytes 1.1 K/uL (0.1-1.3); Absolute Neutrophil 3.7 K/uL (1.8-8.0); Basophils % 0.4 % (0-1.3); Eosinophils % 2.8 % (0-4.4); Hematocrit 37.7 % (39.6-49.0); Hemoglobin 11.9 g/dL (13.6-17.9); Lymphocytes % 28.1 % (15.3-44.8); MCH 25.8 pg (27.0-35.0); MCHC 31.6 g/dL (32.0-36.0); MCV 81.5 fL (80-100); MPV 10.8 fL (7.6-11.3); Monocytes % 15.9 % (3.3-12.3); Neutrophils % 52.8 % (41.7-73.7); Platelets 159 thou/uL (152-406); RBC Red Blood Cell Count 4.63 M/uL (4.33-5.43); Red Cell Distribution Width 18.9 % (12.1-15.2)
[2024-03-26 07:03] LABS: Albumin 3.6 g/dL (3.4-5.0); Prealbumin 34.8 mg/dL (20-40)
[2024-03-27 06:55] VITALS: BP 148/81; TEMP 97
[2024-03-27 08:10] LABS: Magnesium 2.7 mg/dL (1.6-2.4)
[2024-03-27 09:35] VITALS: O2SAT 93
--- NOTE | 2024-04-03 21:17 | DS ---
Date of Discharge: 03/27/2024 Allergies: CODEINE, IODINE. Weightbearing Status: As tolerated. Diet: Heart healthy. Medications: Robaxin 750 mg 3 times daily, Coreg 25 mg twice daily, trazodone 100 mg at bedtime, tra madol 50 mg every 6 hours as needed, Flomax 0.4 mg daily, potassium 10 mEq twice daily, Cozaar 50 mg twice daily, Apresoline 75 mg every 8 hours, Lasix 40 mg daily, folic acid 1 mg daily, vitamin D 5000 units daily, Hygroton 25 mg daily, Lipitor 80 mg at bedtime, glipizide 5 mg twice daily, Effexor 225 mg daily, Lidoderm patch 4% apply topically daily, ferrous sulfate 325 mg daily, Enbrel 50 mg per we ek, cranberry fruit extract 200 mg twice daily. Laboratory Studies: White blood cell count 6.9, hemoglobin 11.9, platelets are 159. Sodium 134, pot assium 3.0, chloride 102, carbon dioxide 33, BUN 20, creatinine 1.45, glucose ranged from 87-159, kady cium 9.2, magnesium 2.7. X-ray imaging, no x-rays imaging. Synopsis Of Events That Led To Admission: Mr. Lira is a 74-year-old patient with hypertension, arthr itis, ankylosing spondylitis. He had a [employer] bleed in 2022 with multiple strokes with some residual le ft-sided weakness, arthritic pain and has ankylosing spondylitis that affect his knees and both hips especially. As a result, the patient is having frequent falls. He fell 4 times in 4 days and was pr eviously not seen by case finisher for at least 2 years after he moved to [place]. He was able to use a walker and a wheelchair. However, the wheelchair at home was wider than the doorways. As a resul t, he was transferring without assistive device, he has been having multiple falls. Does live with h is who does all the housework, assists him with activities of daily living and has 26 hour per w naknek caregiver. After his last fall, he was taken to [facility] by Emergency Service s as his was unable to get him up from the floor. Workup showed normal blood count with differe ntial, no fractures. CT scan of the abdomen showed gallstones and absent right kidney, stable findin gs in both adrenal glands. He had chronic diverticulosis and diverticulitis and the ankylosing spond ylitis in the thoracic and lumbar spine. CT of the chest showed pneumonia, which was treated with IV antibiotics. Due to pain in his hip and leg from ankylosing spondylitis, he did require maximal ass istance for bed mobilization, transfers, and ambulation is 3 feet with a rolling walker. He also may require oxygen as he did have saturations down to 80% with mobilization. While at rest, around 90%. He also therefore recommended for inpatient physical, occupational and if need be speech therapy gi quang his complex medical condition and risk of further complications to help reduce his risk of rehosp italization and to return to a prior level of functioning. Hospital Course: While hospitalized, he did have some pain in the medial right knee. A pain patch w as placed there. He did have a complete blood count with differential showing no evidence of an infe ction. Hemoglobin remained stable; at admission, was 11.5, on discharge 11.9. Did have some mild hy pokalemia that was replaced with potassium replacement. Also, the creatinine elevated at 1.45. Enco uraged hydration. Blood sugars were up to 159 and low at 70, and magnesium was slightly elevated to 2.7 and calcium 9.2. Urinalysis 4+ glucose and trace protein. Progress Made With Physical, Occupational, And Speech Therapy: With his occupational therapy, he rep orts he did have some poor vision and depth perception. He still was independent with toileting and showering independent, eating independent, grooming independent, bathing independent, upper body dres sing and lower body dressing, all independent. Did meet his long-term and short-term goals in occupa tional therapy, admonished to be careful as he transfers to reduce the risk of additional falls and w ill continue with home health. Regarding his physical therapy, by discharge, he did show good balance, still had the kyphosis in ter ms of his posture. Bed mobilization, wheelchair transfers, all done with good tolerance. Gait, he c overed over 500 feet with good tolerance and a rolling walker. Wheelchair mobilization, 500 feet wit h good tolerance. Did meet all of his long-term and short-term goals. Durable medical equipment nee ds were met and will have home health services continue. Regarding his speech, memory, direct supervision for short-term, long-term was independent; pragmatic s independent; comprehension independent; reading and comprehension independent; expression is all in dependent, intelligibility 100%. His BIMS score improved to normal of 15. SLUMS score improved from 25 to 26. Followup: Will be with primary care physician as scheduled. EMILIE Voice ID: [id number] Report ID: [id number]
== END 2024-03-27 11:45 | disposition home or self-care (01) | DRG 546 ==
LOC: 5TH 18:41
PROVIDERS: ADMIT Psychiatry & Neurology Neurology with Special Qualifications in Child Neurology; ATTEND Psychiatry & Neurology Neurology with Special Qualifications in Child Neurology
DX: M45.0 Ankylosing spondylitis of multiple sites in spine (principal); I69.354 Hemiplegia and hemiparesis following cerebral infarction affecting left non-dominant side; N39.0 Urinary tract infection, site not specified; I10 Essential (primary) hypertension; M19.90 Unspecified osteoarthritis, unspecified site; E11.40 Type 2 diabetes mellitus with diabetic neuropathy, unspecified; R13.10 Dysphagia, unspecified; E87.6 Hypokalemia; N40.0 Benign prostatic hyperplasia without lower urinary tract symptoms; K59.00 Constipation, unspecified; M62.838 Other muscle spasm; M25.561 Pain in right knee
CPT/HCPCS: 36415; 80048; 81001; 82040; 82947; 83036; 83735; 84132; 84134; 85025; 87086; 87088; 92523; 97110; 97112; 97116; 97129; 97163; 97165; 97530; 97542; J2001; J7030; Q0162